=== PATIENT | female | born 1950 | race Caucasian/White ===

== ENCOUNTER → 2016-10-04 | Outpatient (CLI) | payer OTHER ==
[~2016-10-04] MED LIST: BUDE9TAB PO; CALC-787 PO; CANASA RC; CETI10CA PO; DOXY100C2 PO; FEXO-14 PO; HYDROCORTISONE ENEMA PR; LEVOTHYROXINE 75 MCG PO; MESA1.2T PO; MMT17NA NS; MONT10TA24 PO; MULT1TAB PO; POTA-51 PO; PRD20T PO; ROSU5TAB PO; RT-ALBUINH IH; SULF1TAB35 PO
--- OUTSIDE RECORDS SUMMARY | 2016-10-04 09:47 | XMS REPORT | Continuity of Care Document ---
Author Author [facility] Organization [facility] Address Unknown Phone Unavailable Care Team Providers Care Operations Support Coordinator Name Role Phone Guerita Pillai PCP [phone] Source Comments Some departments are not documenting in the electronic medical record. If you do not see the information that you expected, contact Release of Information in the Health Information Management department at [phone] for further assistance in locating additional records.[facility] Active Allergies and Adverse Reactions Allergen Noted Date Severity Reactions Comments [place] 08/10/2016 Low SNEEZING Dust 08/10/2016 Low RHINITIS Pollen 08/10/2016 Low SNEEZING Current Medications Prescription Sig. Disp. Refills Start End Date Status Date mesalamine (LIALDA) 1.2 Take 1.2 g by mouth Active gram tablet daily. Swallow whole; do not break, chew or crush. Administer with a meal. pantoprazole DR Take 40 mg by mouth Active (PROTONIX) 40 mg tablet daily. mesalamine(+) (CANASA) Insert or Apply 1,000 mg Active 1,000 mg supp to rectal area as directed twice daily. Levothyroxine 75 mcg cap Take by mouth. Active rosuvastatin (CRESTOR) 5 Take 5 mg by mouth daily. Active mg tablet mometasone (NASONEX) 50 Apply 2 Sprays to each Active mcg/actuation nasal spray nostril as directed daily. FEXOFENADINE HCL (CELINE Take by mouth. Active PO) ACETAMINOPHEN (TYLENOL Take by mouth. Active PO) cholecalciferol(+) Take 1 Cap by mouth every 4 Cap 2 08/28/20 Active (Vitamin D3) 50,000 units 7 days for 12 doses. 16 17 capsule budesonide (UCERIS) 9 mg Take 1 Tab by mouth daily 30 Tab 0 09/14/20 10/14/19 Active ER tablet for 30 days. 16 17 budesonide (UCERIS) 9 mg Take 9 mg by mouth daily. 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 Most Recent Encounters Date Type Specialty Providers Description 09/14/2016 Refill Gastroenterology Rebekah Turpin MD 09/05/2016 Orders Only Gastroenterology Rebekah Turpin MD 09/05/2016 Lab Only Gastroenterology Rebekah Turpin MD 09/04/2016 Telephone Infusion Rebekah Turpin MD Other - symptoms 08/27/2016 Telephone Gastroenterology Rebekah Turpin MD Results 08/23/2016 Telephone Gastroenterology Rebekah Turipn MD Other - Infusion 08/13/2016 Orders Only GastroenterRebekah Yanes MD Indeterminate colitis (Primary Dx) 08/10/2016 Hospital Rebekah Turpin MD Indeterminate colitis Encounter 08/10/2016 Office Visit Gastroenterology Rebekah Turpin MD Ulcerative proctitis with complication (HCC) (Primary Dx); Indeterminate colitis; Immunosuppressed status (HCC) Social History Tobacco Use Types Packs/Day Years Used Date Never Assessed Last Filed Vital Signs Vital Sign Reading Time Taken Blood Pressure 176/111 08/10/2016 9:52 AM CASHIER Pulse 72 08/10/2016 9:52 AM CASHIER Temperature 36.5 C (97.7 F) 08/10/2016 9:52 AM CASHIER Respiratory Rate 16 08/10/2016 9:52 AM CASHIER Height 1.702 m (5' 7") 08/10/2016 9:52 AM CASHIER Weight 90.357 kg (199 lb 3.2 oz) 08/10/2016 9:52 AM CASHIER Body Mass Index 31.19 08/10/2016 9:52 AM CASHIER Oxygen Saturation - - Plan of Care Health Maintenance Due Date Last Done Comments Hepatitis C Screening 1951 Physical (Comprehensive) 1958 Exam Pertussis Vaccine 1962 Tetanus Vaccine 1968 Cervical Cancer Screening 1972 Breast Cancer Screening 1991 Colorectal Cancer 2001 Screening Shingles Vaccine 2011 Influenza Vaccine 05/24/2016 Results from Last 3 Months TISSUE TRANSGLUTAMINASE AB IGA (08/10/2016 12:17 PM) Component Value Range Tissue Transglutaminase <1.2 Reference range: <4.0 (Negative) Unit: U/mL [facility] 25-OH VITAMIN D (D2 + D3) (08/10/2016 12:17 PM) Component Value Range Vitamin D(25-OH)Total 14.6 (L) 30-80 NG/ML Specimen Blood VITAMIN B12 (08/10/2016 12:17 PM) Component Value Range Vitamin B12 290 180-914 PG/ML Specimen Blood FOLATE, SERUM (08/10/2016 12:17 PM) Component Value Range Serum Folate 14.4Comment: NOTE NEW REFERENCE RANGES >3.9 NG/ML Specimen Blood FERRITIN (08/10/2016 12:17 PM) Component Value Range Ferritin 91 10-200 NG/ML Specimen Blood IRON + BINDING CAPACITY + %SAT (08/10/2016 12:17 PM) Component Value Range Iron 69 50-160 MCG/DL Iron Binding-TIBC 393 (H) 270-380 MCG/DL % Saturation 18 (L) 28-42 % Specimen Blood CELIAC DISEASE PANEL (08/10/2016 12:17 PM) Component Value Range Immunoglobulin A (IGA) 145Comment: Reference range: 61 to 356 Unit: mg/dL [facility] Interpretation, Celiac Negative serology. Celiac disease unlikely. However, approximately 10% of patients with celiac disease are seronegative. Also, patients who are already adhering to a gluten-free diet may be seronegative. If celiac disease is highly clinically suspected, consider HLA-DQ typing. [facility] Specimen Blood C REACTIVE PROT-HI SENSITIVITY (08/10/2016 12:17 PM) Component Value Range CRP, High Sensitivity 0.43Comment: MG/DL HSCRP CARDIAC RISK RANGES <0.06 LOWEST 0.06 - 0.09 LOW 0.10 - 0.16 MODERATE 0.17 - 0.32 HIGH >0.32 HIGHEST Specimen Blood SED RATE (08/10/2016 12:17 PM) Component Value Range Sed Rate -ESR 17 0-30 MM/HR Specimen Blood COMPREHENSIVE METABOLIC PANEL (08/10/2016 12:17 PM) Component Value Range Sodium 141 137-147 MMOL/L Potassium 3.8 3.5-5.1 MMOL/L Chloride 105 98-110 MMOL/L Glucose 95 70-100 MG/DL Blood Urea Nitrogen 14 7-25 MG/DL Creatinine 1.23 (H) 0.4-1.00 MG/DL Calcium 9.4 8.5-10.6 MG/DL Total Protein 7.0 6.0-8.0 G/DL Total Bilirubin 0.5 0.3-1.2 MG/DL Albumin 4.2 3.5-5.0 G/DL Alk Phosphatase 72 25-110 U/L AST (SGOT) 22 7-40 U/L CO2 29 21-30 MMOL/L ALT (SGPT) 42 7-56 U/L Anion Gap 7 3-12 eGFR Non 44 (L)Comment: >60 mL/min The eGFR is not validated for use in drug dosing adjustments. Continue to use estimated creatinine clearance per dosing reference text. Please contact the Clinical Pharmacist for questions. eGFR 53 (L)Comment: >60 mL/min The eGFR is not validated for use in drug dosing adjustments. Continue to use estimated creatinine clearance per dosing reference text. Please contact the Clinical Pharmacist for questions. Specimen Blood CBC AND DIFF (08/10/2016 12:17 PM) Component Value Range White Blood Cells 8.9 4.5-11.0 K/UL RBC 4.57 4.0-5.0 M/UL Hemoglobin 13.5 12.0-15.0 GM/DL Hematocrit 41.2 36-45 % MCV 90.1 80-100 FL MCH 29.6 26-34 PG MCHC 32.8 32.0-36.0 G/DL RDW 13.7 11-15 % Platelet Count 287 150-400 K/UL MPV 8.5 7-11 FL Neutrophils 70 41-77 % Lymphocytes 21 (L) 24-44 % Monocytes 6 4-12 % Eosinophils 2 0-5 % Basophils 1 0-2 % Absolute Neutrophil Count 6.30 1.8-7.0 K/UL Absolute Lymph Count 1.90 1.0-4.8 K/UL Absolute Monocyte Count 0.50 0-0.80 K/UL Absolute Eosinophil Count 0.10 0-0.45 K/UL Absolute Basophil Count 0.10 0-0.20 K/UL Specimen Blood
--- NOTE | 2016-10-04 18:29 | Diagnostic Imaging Report ---
Bilateral screening mammogram The current study was also evaluated with a Computer Aided Detection (CAD) system. Indication: Screening. No current complaints stated on the questionnaire. COMPARISON: 08/23/15. FINDINGS: The breasts are composed of scattered fibroglandular densities, slightly more dense in the lateral aspect of each breast. There is no developing mass, architectural distortion or suspicious cluster of calcifications. Allowing for technique and positional differences, no suspicious change is seen. IMPRESSION: No significant change. ACR BI-RADS Category 2: Benign findings. Result letter will be mailed to the patient. Note: At least 10% of breast cancer is not imaged by mammography. Dictated by: Dictated on workstation # [id number]
== END ==
LOC: RAD 09:44
PROVIDERS: ATTEND Family Medicine
DX: Z12.31 Encounter for screening mammogram for malignant neoplasm of breast (principal)

== ENCOUNTER → 2017-01-22 | Outpatient (CLI) | payer MEDICARE ==
--- NOTE | 2017-01-24 11:59 | ECHOCARDIOGRAPHY REPORT ---
DATE OF SERVICE: 01/22/2017 PROCEDURE: Two-dimensional echocardiogram. REFERRING PHYSICIAN: Guerita Pillai DO INDICATION: Peripheral edema. MEASUREMENT: LVID end diastolic 3.5, IVS thickness 0.8, LVPW thickness 0.8, left atrial diameter 3.1, ejection fraction 60%. FINDINGS: 1. Technical quality is good. 2. The left ventricle is normal in size with normal contractility, systolic function appeared to be normal, estimated ejection fraction is 60%, diastolic dysfunction is suggested by Doppler. 3. The left atrium is normal in size. No clot or thrombus were seen within the left atrium. 4. The right atrium and right ventricle are normal in size. No clot or thrombus were seen within the right side. 5. Mitral valve is normal in morphology with mild mitral regurgitation noted by color Doppler flow. No mitral valve prolapse. No mitral valve stenosis. Doppler across the mitral valve showed equalization of E and A, which is suggestive of diastolic dysfunction. 6. The aortic valve is trileaflet with normal opening and closing pattern. No significant aortic stenosis or regurgitation are seen, mild calcification of the aortic leaflets were noted. 8. Tricuspid valve is normal in morphology with mild tricuspid regurgitation noted by color Doppler flow. Doppler across tricuspid valve estimated pulmonary artery pressure of 9 plus right atrial pressure. 9. Pulmonic valve is functioning normally. 10. No pericardial effusion. CONCLUSION: 1. Normal left ventricular size and systolic function. Estimated ejection fraction is 60%. Diastolic dysfunction is suggested by Doppler. 2. Mild mitral and tricuspid regurgitation. 3. Estimated pulmonary artery pressure of 15 mmHg. Job ID: [id number] DocumentID: [id number] Dictated Date: 01/23/2017 17:15:28 Cabinet Professional Date: 01/24/2017 09:52:57 Dictated By: EFRAÍN JOHNSON MD
== END ==
LOC: CARD 13:13
PROVIDERS: ATTEND Nurse Practitioner
DX: R60.9 Edema, unspecified (principal); R53.83 Other fatigue
CPT/HCPCS: 36415; 83880; 93306

== ENCOUNTER → 2017-02-06 | Outpatient (CLI) | payer MEDICARE ==
--- NOTE | 2017-02-06 12:37 | Diagnostic Imaging Report ---
PROCEDURE: US Abdomen, limited. TECHNIQUE: Multiple realtime grayscale images were obtained over the abdomen in various projections. INDICATION: Ulcerative colitis. Evaluate mesenteric vessels. FINDINGS: The abdominal aorta is patent with a velocity of 53 cm/s. The SMA is not visualized. The celiac trunk is also not visualized. IMPRESSION: Limited study. The mesenteric vessels are obscured by bowel gas. Consider CT evaluation if needed. Dictated by: Dictated on workstation # [id number]
== END ==
LOC: RAD 08:50
PROVIDERS: ATTEND Nurse Practitioner
DX: K51.919 Ulcerative colitis, unspecified with unspecified complications (principal); R10.84 Generalized abdominal pain; R60.9 Edema, unspecified; R74.8 Abnormal levels of other serum enzymes
CPT/HCPCS: 76705

== ENCOUNTER → 2017-10-23 | Outpatient (CLI) | payer MEDICARE ==
--- NOTE | 2017-10-23 11:27 | Diagnostic Imaging Report ---
INDICATION: Routine screening. COMPARISON: 10/04/2016 and 08/23/2015. TECHNIQUE: Screening digital mammography was performed bilaterally with a Computer Aided Detection (CAD) system. FINDINGS: Both breasts are heterogeneously dense, limiting the sensitivity of mammography. The parenchymal pattern is stable. No dominant mass or malignant appearing microcalcifications are seen. The axillae are unremarkable. IMPRESSION: No mammographic features suspicious for malignancy are identified. ACR BI-RADS Category 1: Negative. Result letter will be mailed to the patient. Note: At least 10% of breast cancer is not imaged by mammography. Dictated by: Dictated on workstation # [id number]
== END ==
LOC: RAD 09:48
PROVIDERS: ATTEND Family Medicine
DX: Z12.31 Encounter for screening mammogram for malignant neoplasm of breast (principal)
CPT/HCPCS: 77067

== ENCOUNTER 2017-11-28 19:50 | Emergency (ER) | payer MEDICARE ==
[~2017-11-28] VITALS: Ht 170.2 cm; Wt 86.2 kg
--- OUTSIDE RECORDS SUMMARY | 2017-11-28 19:56 | XMS REPORT | Encounter Summary ---
Author Author [facility] Organization [facility] Address Unknown Phone Unavailable Care Team Providers Care Dentures Lab Technician Name Role Phone Guerita Pillai MD PCP Encounter Details Date Type Department Care Team Description 01/16/2018 [facility] [place] Reg Scruggs MD COLONOSCOPY Gastrointestinal [address] [facility] [address] [address] [place] [address] [place] [address] [phone] Social History Tobacco Use Types Packs/Day Years Used Date Former Smoker Quit: 01/30/1996 Smokeless Tobacco: Never Used Alcohol Use Drinks/Week oz/Week Comments Yes Sex Assigned at Date Recorded Not on file as of this encounter Functional Status Functional Status Response Date of Assessment Does the patient have a hearing impairment: No 10/04/2017 Does the patient have a visual impairment: Yes 10/04/2017 Does the patient have impaired ambulation: No 10/04/2017 Does the patient have an activity of daily living No 10/04/2017 (ADL) impairment: Does the patient have an instrumental activity of No 10/04/2017 daily living (IADL) impairment: Cognitive Status Response Date of Assessment Does the patient have a cognitive impairment: No 10/04/2017 as of this encounter Plan of Treatment Date Type Specialty Care Team Description 01/16/2018 Surgery Gastroenterology Reg Scruggs MD COLONOSCOPY [address] [place] [address] [phone] 01/16/2018 Procedure Pass Gastroenterology 01/16/2018 [facility] Reg Scruggs MD Colitis Encounter [address] [place] [address] [phone] as of this encounter Visit Diagnoses Diagnosis Colitis Other and unspecified noninfectious gastroenteritis and colitis Admitting Diagnoses Diagnosis Colitis - Colitis [K52.9] Other and unspecified noninfectious gastroenteritis and colitis
--- OUTSIDE RECORDS SUMMARY | 2017-11-28 19:56 | XMS REPORT | Encounter Summary ---
Author Author [facility] Organization [facility] Address Unknown Phone Unavailable Care Team Providers Care Media Relations Intern Name Role Phone PCP Unavailable Encounter Details Date Type Department Care Team Description 01/16/2018 Procedure Pass [place] [facility] [address] [place] [address] Social History Tobacco Use Types Packs/Day Years [...] Surgery Gastroenterology Reg Scruggs MD COLONOSCOPY [address] [place] [address] [phone] 01/16/2018 Procedure Pass Gastroenterology 01/16/2018 [facility] Reg Scruggs MD Colitis Encounter [address] [place] [address] [phone] as of this encounter Visit Diagnoses Not on filein this encounter
--- OUTSIDE RECORDS SUMMARY | 2017-11-28 19:56 | XMS REPORT | Continuity of Care Document ---
Author Author [facility] Organization [facility] Address Unknown Phone Unavailable Care Team Providers Care Tire Trucker Name Role Phone [facility] Unavailable Unavailable Problems Medications Allergies, Adverse Reactions, Alerts Immunizations Results Vital Signs Encounters Location Location Details Encounter Type Encounter Number Reason For Visit Attending Provider ADM Date DC Date Status Source OUTPATIENT [id number] JAVIER DASILVA 05/08/20172016 Active [facility] OUTPATIENT [id number] CAMMIE BOLANOS 06/04/2017 06/04/2017 Active [facility] OP SURGERY [id number] 07/01/2017 07/01/2017 Active [facility] OP SURGERY [id number] 07/15/2017 07/15/2017 Active [facility] OP SURGERY [id number] 08/12/2017 08/12/2017 Active [facility] OUTPATIENT [id number] MANN KEITH 08/30/20172016 Active [facility] OUTPATIENT [id number] MANN KEITH 08/30/2017 Active [facility] OP SURGERY [id number] 10/04/2017 10/04/2017 Active [facility] OP SURGERY [id number] 11/27/2017 11/27/2017 Active [facility] O 11/28/2017 Active [facility] OUTPATIENT [id number] JAVIER DASILVA 11/28/2017 Active [facility] Procedures Plan of Care Social History Assessment and Plan Family History Advance Directives Functional Status
--- OUTSIDE RECORDS SUMMARY | 2017-11-28 19:56 | XMS REPORT | Clinical Summary ---
Author Author [facility] Organization [facility] Address Unknown Phone Unavailable Care Team Providers Care High School Mathematics Teacher Name Role Phone Guerita Pillai MD PCP Source Comments Some departments are not documenting in the electronic medical record. If you do not see the information that you expected, contact Release of Information in the Health Information Management department at [phone] for further assistance in locating additional records.[facility] Allergies Active Allergy Reactions Severity Noted Date Comments Animal Dander SNEEZING Low 02/12/2017 [place] SNEEZING Low 08/10/2016 Dust RHINITIS Low 08/10/2016 Pollen SNEEZING Low 08/10/2016 Current Medications Prescription Sig. Disp. Refills Start End Date Status Date Levothyroxine 75 mcg cap Take 50 mcg by mouth Active daily. rosuvastatin (CRESTOR) 5 Take 5 mg by mouth every Active mg tablet 48 hours. mometasone (NASONEX) 50 Apply 2 Sprays to each Active mcg/actuation nasal spray nostril as directed daily. FEXOFENADINE HCL (CELINE Take by mouth. Active PO) ACETAMINOPHEN (TYLENOL Take by mouth. Active PO) prednisone (DELTASONE) 5 Take 35 mg PO for 7 days, 168 Tab 0 11/08/19 Active mg tablet 30 mg PO for 7 days, 25 17 mg PO for 7 days, 20 mg PO for 7 days, then 10 mg PO for 7 days then stop L.ACID/L.CASEI/B.BIF/B.LO Take by mouth daily. Active N/FOS (PROBIOTIC BLEND PO) ERGOCALCIFEROL (VITAMIN Take 5,000 Units by mouth Active D2) (VITAMIN D PO) daily. levothyroxine (SYNTHROID) TK 1 T PO QD 0 05/07/20 Active 50 mcg tablet 17 azelastine(+) (ASTELIN) INSTILL 2 SPRAYS INTO 2 07/13/20 Active 137 mcg (0.1 %) nasal EACH NOSTRIL BID 17 spray azaTHIOprine (IMURAN) 50 Take 2.5 tablets by mouth 98 tablet 5 Active mg tablet daily. Dose change on 08-22-2017 diclofenac(+) (VOLTAREN) Apply 2g to hands 3-4 300 g 3 08/30/20 Active 1 % topical gel times daily [address] Take 1 tablet by mouth 90 tablet 0 09/24/19 Active (PROTONIX) 40 mg tablet daily 30 minutes before 18 breakfast. CHOLECALCIFEROL (VITAMIN Take by mouth. Active D3) (VITAMIN D3 PO) electrolyte GUT PEG Mix as directed on 4000 mL 0 11/27/19 Active (NULYTELY, COLYTE, package. Drink 240ml 18 GAVILYTE-N) 420 gram oral (8oz) every 10 minutes solution until gone. Refrigerate once mixed. Active Problems Problem Noted Date Colitis 11/27/2017 Overview: Added automatically from request for surgery [id number] Gastroesophageal reflux disease without esophagitis 06/04/2017 ALEXSANDRA (acute kidney injury) (HCC) 02/20/2017 Immunosuppressed status (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 Encounters Date Type Specialty Care Team Description 11/28/2017 Hospital Lab Mag Lira MBBS Chronic kidney disease, Encounter stage 3 (moderate) 11/27/2017 Office Visit Nephrology Mag Lira MBBS CKD (chronic kidney disease) stage 3, GFR 30-59 ml/min (Primary Dx) 11/27/2017 Infusion Infusion Reg Scruggs MD Indeterminate colitis (Primary Dx) 11/26/2017 Office Visit Gastroenterology Kurt Rouse MD 11/26/2017 Prep for Case Gastroenterology Reg Scruggs MD Colitis ( Primary Dx) 11/25/2017 Orders Only Infusion Je Natarajan RPH 10/09/2017 Orders Only Gastroenterology Reg Scruggs MD 10/04/2017 Infusion Infusion Kurt Rouse MD Indeterminate colitis (Primary Dx) 09/24/2017 Refill Gastroenterology Lani Godinez ARNP 09/18/2017 Orders Only Allergy,Immunology and Al Mancini MD Rheumatology 09/13/2017 Telephone Allergy,Immunology and Al Mancini MD Follow- up Phone Call Rheumatology 09/09/2017 Orders Only Gastroenterology Reg Scruggs MD Medication monitoring encounter 09/03/2017 Telephone Allergy,Immunology and Al Mancini MD Prior Authorization Rheumatology (Voltaren Gel) 08/30/2017 Hospital Lab Al Mancini MD Pain in unspecified joint Encounter 08/30/2017 Hospital Radiology Al Mancini MD Encounter 08/30/2017 Office Visit Allergy,Immunology and Al Mancini MD Polyarthralgia (Primary Rheumatology Dx); MOON positive; IBD (inflammatory bowel disease); Inflammatory arthropathy; Osteoarthritis, unspecified osteoarthritis type, unspecified site; Trigger little finger of right hand from Last 3 Months Immunizations Name Dates Previously Given Next Due HEP A/HEP B Combined 06/04/2017 Vaccine Pneumococcal 04/02/2017 Vaccine([facility]/immunocompromised adult) Family History Medical History Relation Name Comments Irritable Bowel Disease Brother Cancer Father Arthritis Mother Heart Disease Mother Heart Failure Mother Thyroid Disease Other siblings Arthritis Paternal Grandfather Hypertension Paternal Grandfather Autoimmune Disease Neg Hx Cancer-Colon Neg Hx Inflammatory Bowel Neg Hx Disease Ulcerative Colitis Neg Hx Relation Name Status Comments Brother Father Mother Other siblings Alive Paternal Grandfather Social History Tobacco Use Types Packs/Day Years Used Date Former Smoker Quit: 01/30/1996 Smokeless Tobacco: Never Used Alcohol Use Drinks/Week oz/Week Comments Yes Sex Assigned at Date Recorded Not on file Last Filed Vital Signs Vital Sign Reading Time Taken Blood Pressure 167/84 11/27/2017 3:50 PM SOUND ASSISTANT Pulse 102 11/27/2017 3:50 PM SOUND ASSISTANT Temperature 36.4 C (97.6 F) 11/27/2017 8:51 AM SOUND ASSISTANT Respiratory Rate 18 11/26/2017 3:16 PM SOUND ASSISTANT Oxygen Saturation 99% 11/27/2017 8:51 AM SOUND ASSISTANT Inhaled Oxygen - - Concentration Weight 86.6 kg (191 lb) 11/27/2017 3:48 PM SOUND ASSISTANT Height 173.7 cm (5' 8.39") 11/27/2017 3:48 PM SOUND ASSISTANT Body Mass Index 28.71 11/27/2017 3:48 PM SOUND ASSISTANT Plan of Treatment Date Type Specialty Care Team Description 01/16/2018 Surgery Gastroenterology Reg Scruggs MD COLONOSCOPY [address] [place] [address] [phone] 01/16/2018 Procedure Pass Gastroenterology 01/16/2018 Hospital Reg Scruggs MD Colitis Encounter [address] [place] [address] [phone] Health Maintenance Due Date Last Done Comments HEPATITIS C SCREENING 1951 PHYSICAL (COMPREHENSIVE) 1958 EXAM PERTUSSIS VACCINE 1962 TETANUS VACCINE 1968 BREAST CANCER SCREENING 1991 COLORECTAL CANCER 2001 SCREENING SHINGLES VACCINE 2011 OSTEOPOROSIS SCREENING 2016 PREVNAR/PNEUMOVAX (#2) 04/02/2018 04/02/2017 INFLUENZA VACCINE 06/23/2018 Procedures Procedure Name Priority Date/Time Associated Diagnosis Comments ARTHROCENTESIS-CLINIC Routine 08/31/2017 Polyarthralgia Results for this 11:29 AM SOUND ASSISTANT MOON positive procedure are in the IBD (inflammatory bowel results section. disease) Inflammatory arthropathy Osteoarthritis, unspecified osteoarthritis type, unspecified site Trigger little finger of right hand from Last 3 Months Results * MICROALB/CR RATIO-URINE RANDOM (11/27/2017 3:40 PM) Component Value Ref Range Microalbumin, Random 49.3 (H) <19 MCG/ML Creatinine, Random 158 MG/DL Microalbumin/CR ratio 31.20 (H)Comment: NOTE NEW REFERENCE RANGES <30 ug/ mg Urine Specimen Performing Laboratory Urine [facility] [address] [place] [address] * CBC AND DIFF (11/27/2017 9:38 AM) Only the most recent of 3 results within the time period is included. Component Value Ref Range White Blood Cells 4.9 4.5 - 11.0 K/UL RBC 3.86 (L) 4.0 - 5.0 M/UL Hemoglobin 12.5 12.0 - 15.0 GM/DL Hematocrit 36.4 36 - 45 % MCV 94.1 80 - 100 FL MCH 32.3 26 - 34 PG MCHC 34.3 32.0 - 36.0 G/DL RDW 13.5 11 - 15 % Platelet Count 215 150 - 400 K/UL MPV 8.0 7 - 11 FL Neutrophils 57 41 - 77 % Lymphocytes 25 24 - 44 % Monocytes 9 4 - 12 % Eosinophils 8 (H) 0 - 5 % Basophils 1 0 - 2 % Absolute Neutrophil Count 2.80 1.8 - 7.0 K/UL Absolute Lymph Count 1.20 1.0 - 4.8 K/UL Absolute Monocyte Count 0.40 0 - 0.80 K/UL Absolute Eosinophil Count 0.40 0 - 0.45 K/UL Absolute Basophil Count 0.10 0 - 0.20 K/UL Specimen Performing Laboratory [facility] [address] [place] [id number] * COMPREHENSIVE METABOLIC PANEL (11/27/2017 9:38 AM) Only the most recent of 2 results within the time period is included. Component Value Ref Range Sodium 142 137 - 147 MMOL/L Potassium 3.9 3.5 - 5.1 MMOL/L Chloride 106 98 - 110 MMOL/L Glucose 84 70 - 100 MG/DL Blood Urea Nitrogen 18 7 - 25 MG/DL Creatinine 1.12 (H) 0.4 - 1.00 MG/DL Calcium 9.3 8.5 - 10.6 MG/DL Total Protein 6.5 6.0 - 8.0 G/DL Total Bilirubin 0.4 0.3 - 1.2 MG/DL Albumin 4.1 3.5 - 5.0 G/DL Alk Phosphatase 64 25 - 110 U/L AST (SGOT) 27 7 - 40 U/L CO2 30 21 - 30 MMOL/L ALT (SGPT) 22 7 - 56 U/L Anion Gap 6 3 - 12 eGFR Non 49 (L) >60 mL/min Comment: The eGFR is not validated for use in drug dosing adjustments. Continue to use estimated creatinine clearance per dosing reference text. Please contact the Clinical Pharmacist for questions. eGFR 59 (L) >60 mL/min Comment: The eGFR is not validated for use in drug dosing adjustments. Continue to use estimated creatinine clearance per dosing reference text. Please contact the Clinical Pharmacist for questions. Specimen Performing Laboratory Blood [facility] [address] [place] [address] * [facility] REFERENCE TEST (10/04/2017 3:15 PM) Component Value Ref Range Test PROMETHEUS Anser VDZ Reference Lab PROMETHEUS Results Ref Lab SHIPPED VIA [employer] PRIORITY OVERNIGHT ON 10/04/2017. RESULTS WILL BE SENT DIRECTLY TO THE ORDERING PHYSICIAN. Specimen Mail SERUM 2 GOLD TUBES Specimen Performing Laboratory REFERENCE LAB * MISCELLANEOUS LAB TEST (10/04/2017) Specimen Performing Laboratory Blood OTHER OUTSIDE LAB * ARTHROCENTESIS-CLINIC (08/31/2017 11:29 AM) Specimen Performing Laboratory IN CLINIC Narrative Al Mancini MD 08/31/2017 11:29 AM Written informed consent was obtained and scanned into the chart. The site was marked and sterilized. Location: right 5th finger flexor tenosynovitis - trigger finger injection Injection: DepoMedrol 16mg plus Lidocaine 3mg. Procedure done by: Al Mancini MD Written post-injection instructions were given. No complications * MPO/DC-3 (08/30/2017 1:50 PM) Component Value Ref Range Myeloperoxidase AB <0.2 Reference range: <0.4 (Negative) Unit: U [facility] Serine Protease3 AB <0.2 Reference range: <0.4 (Negative) Unit: U [facility] Specimen Performing Laboratory Blood REFERENCE LAB * SED RATE (08/30/2017 1:50 PM) Component Value Ref Range Sed Rate -ESR 3 0 - 30 MM/HR Specimen Performing Laboratory Blood [facility] [address] [place] [address] * C REACTIVE PROTEIN (CRP) (08/30/2017 1:50 PM) Component Value Ref Range C-Reactive Protein 0.20 <1.0 MG/DL Specimen Performing Laboratory Blood [facility] [address] [place] [address] * HAND MIN 3 VIEWS BILATERAL (08/30/2017 12:41 PM) Specimen Performing Laboratory Bilateral [facility] RESULTS Impressions Findings/impression: Right hand: 1. There is normal alignment of the osseous structures. No fracture or acute osseous abnormality 2. Mild spurring of the IP joint of thumb, minimal spurring of DIP joint 2, 3, 5. Mild spurring of MCP 1. This is consistent with osteoarthritis. 3. No erosions identified. No soft tissue calcifications. Left hand: 1. There is normal alignment of the osseous structures. No fracture or acute abnormality. 2. Mild narrowing of DIP joints 2-5. Minimal spurring of the IP joint of thumb, mild spurring of DIP joint 2, minimal spurring of DIP joints 3 and 5. This is consistent with osteoarthritis. 3. No erosions. 4. Tiny periarticular calcification adjacent to DIP 2. Tiny gunnar like calcification adjacent to the ulnar styloid which may reflect a small ossicle or old avulsion. Finalized by Abhishek Green M.D. on 08/30/2017 2:04 PM. Dictated by Abhishek Green M.D. on 08/30/2017 1:49 PM. Narrative Bilateral hand 3 view INDICATION: 66-year-old female, polyarthralgia, MOON positive, inflammatory arthropathy, , IBD, trigger little finger of right hand, right fifth finger stiff COMPARISON: None Procedure Note Interface, Radiant Results - 08/30/2017 2:07 PM SOUND ASSISTANT Bilateral hand 3 view INDICATION: 66-year-old female, polyarthralgia, MOON positive, inflammatory arthropathy, , IBD, trigger little finger of right hand, right fifth finger stiff COMPARISON: None IMPRESSION Findings/impression: Right hand: 1. There is normal alignment of the osseous structures. No fracture or acute osseous abnormality 2. Mild spurring of the IP joint of thumb, minimal spurring of DIP joint 2, 3, 5. Mild spurring of MCP 1. This is consistent with osteoarthritis. 3. No erosions identified. No soft tissue calcifications. Left hand: 1. There is normal alignment of the osseous structures. No fracture or acute abnormality. 2. Mild narrowing of DIP joints 2-5. Minimal spurring of the IP joint of thumb , mild spurring of DIP joint 2, minimal spurring of DIP joints 3 and 5. This is consistent with osteoarthritis. 3. No erosions. 4. Tiny periarticular calcification adjacent to DIP 2. Tiny gunnar like calcification adjacent to the ulnar styloid which may reflect a small ossicle or old avulsion. Finalized by Abhishek Green M.D. on 08/30/2017 2:04 PM. Dictated by Abhishek Green M.D. on 08/30/2017 1:49 PM. from Last 3 Months
--- OUTSIDE RECORDS SUMMARY | 2017-11-28 19:56 | XMS REPORT | Encounter Summary ---
Author Author [facility] Organization [facility] Address Unknown Phone Unavailable Care Team Providers Care Hospital Personnel Director Name Role Phone PCP Unavailable Encounter Details Date Type Department Care Team Description 01/16/2018 [facility] Reg Scruggs MD Colitis Encounter Endoscopy [address] [place] [address] [place] [address] [phone] Social History Tobacco Use Types Packs/Day Years [...] Surgery Gastroenterology Reg Scruggs MD COLONOSCOPY [address] [place] [address] [phone] 01/16/2018 Procedure Pass Gastroenterology 01/16/2018 [facility] Reg Scruggs MD Colitis Encounter [address] [place] [address] [phone] as of this encounter Visit Diagnoses Diagnosis Colitis Other and unspecified noninfectious gastroenteritis and colitis Admitting Diagnoses Diagnosis Colitis - Colitis [K52.9] Other and unspecified noninfectious gastroenteritis and colitis
--- OUTSIDE RECORDS SUMMARY | 2017-11-28 19:57 | XMS REPORT | Encounter Summary ---
Author Author [facility] Organization [facility] Address Unknown Phone Unavailable Care Team Providers Care Mail Distribution Scheme Examiner Name Role Phone Guerita Pillai MD PCP Reason for Visit * Reason Comments Chronic Kidney Disease Stage III Encounter Details Date Type Department Care Team Description 11/27/2017 Office Visit [facility] Mag Lira MBBS CKD (chronic kidney Physicians - Internal [address] disease) stage 3, GFR Medicine [address] 30-59 ml/min (Primary Dx) [address] [place] [address] [place] [phone] [address] [phone] Social History Tobacco Use Types Packs/Day Years Used Date Former Smoker Quit: 01/30/1996 Smokeless Tobacco: Never Used Alcohol Use Drinks/Week oz/Week Comments Yes Sex Assigned at Date Recorded Not on file as of this encounter Last Filed Vital Signs Vital Sign Reading Time Taken Blood Pressure 167/84 11/27/2017 3:50 PM PORTRAIT PHOTOGRAPHER Pulse 102 11/27/2017 3:50 PM PORTRAIT PHOTOGRAPHER Temperature - - Respiratory Rate - - Oxygen Saturation - - Inhaled Oxygen - - Concentration Weight 86.6 kg (191 lb) 11/27/2017 3:48 PM PORTRAIT PHOTOGRAPHER Height 173.7 cm (5' 8.39") 11/27/2017 3:48 PM PORTRAIT PHOTOGRAPHER Body Mass Index 28.71 11/27/2017 3:48 PM PORTRAIT PHOTOGRAPHER in this encounter Functional Status Functional Status Response [...] Surgery Gastroenterology Reg Scruggs MD COLONOSCOPY [address] [place] [address] 01/16/2018 Procedure Pass Gastroenterology 01/16/2018 [facility] Reg Scruggs MD Colitis Encounter [address] [facility] [address] [place] [address] as of this encounter Results * MICROALB/CR RATIO-URINE RANDOM (11/27/2017 3:40 PM) Component Value Ref Range Microalbumin, Random 49.3 (H) <19 MCG/ML Creatinine, Random 158 MG/DL Microalbumin/CR ratio 31.20 (H)Comment: NOTE NEW REFERENCE RANGES <30 ug/ mg Urine Specimen Performing Laboratory Urine [facility] [address] [place] [address] in this encounter Visit Diagnoses Diagnosis CKD (chronic kidney disease) stage 3, GFR 30-59 ml/min - Primary Chronic kidney disease, Stage III (moderate)
--- OUTSIDE RECORDS SUMMARY | 2017-11-28 19:57 | XMS REPORT | Encounter Summary ---
Author Author [facility] Organization [facility] Address Unknown Phone Unavailable Care Team Providers Care Three Dimensional Art Instructor Name Role Phone Guerita Pillai MD PCP Reason for Visit * Treatment (Routine) Status Reason Specialty Diagnoses / Referred By Referred To Procedures Contact Contact Authorized Diagnoses Kurt Rouse, 46 Infusion Ther Indeterminate Cl colitis [address] [place] [address] (ENTYVIO) - LOAD [id number] Phone: + MAINTENANCE [phone] Encounter Details Date Type Department Care Team Description 11/27/2017 Infusion [facility] - Reg Scruggs MD Indeterminate colitis [facility] [address] (Primary Dx) [address] [place] [address] [place], [place] [id number] Social History Tobacco Use Types Packs/Day Years Used Date Former Smoker Quit: 01/30/1996 Smokeless Tobacco: Never Used Alcohol Use Drinks/Week oz/Week Comments Yes Sex Assigned at Date Recorded Not on file as of this encounter Last Filed Vital Signs Vital Sign Reading Time Taken Blood Pressure 157/77 11/27/2017 8:51 AM AGRICULTURAL RESEARCH TECHNICIAN Pulse 72 11/27/2017 8:51 AM AGRICULTURAL RESEARCH TECHNICIAN Temperature 36.4 C (97.6 F) 11/27/2017 8:51 AM AGRICULTURAL RESEARCH TECHNICIAN Respiratory Rate - - Oxygen Saturation 99% 11/27/2017 8:51 AM AGRICULTURAL RESEARCH TECHNICIAN Inhaled Oxygen - - Concentration Weight 87.1 kg (192 lb) 11/27/2017 8:51 AM AGRICULTURAL RESEARCH TECHNICIAN Height 172.7 cm (5' 8") 11/27/2017 8:51 AM AGRICULTURAL RESEARCH TECHNICIAN Body Mass Index 29.19 11/27/2017 8:51 AM AGRICULTURAL RESEARCH TECHNICIAN in this encounter Functional Status Functional Status [...] impairment: No 10/04/2017 as of this encounter Progress Notes * Roberta Emanuel, RN - 11/27/2017 9:00 AM AGRICULTURAL RESEARCH TECHNICIAN pt here for every other month infusion of entyvio; tolerated well; no complaints in this encounter Plan of Treatment Date Type Specialty Care Team Description 01/16/2018 Surgery Gastroenterology Reg Scruggs MD COLONOSCOPY [address] [place], [place] [id number] 01/16/2018 Procedure Pass Gastroenterology 01/16/2018 [facility] Reg Scruggs MD Colitis Encounter [address] [place], [place] [phone] as of this encounter Results * CBC AND DIFF (11/27/2017 9:38 AM) Component Value Ref Range White Blood Cells [...] 0 - 0.20 K/UL Specimen Performing Laboratory [facility] [address] [place] [id number] * COMPREHENSIVE METABOLIC PANEL (11/27/2017 9:38 AM) Component Value Ref Range Sodium 142 137 [...] Performing Laboratory Blood [facility] [address] [place] [address] in this encounter Visit Diagnoses Diagnosis Indeterminate colitis - Primary Other and unspecified noninfectious gastroenteritis and colitis Administered Medications Medication Order MAR Action Action Date Dose Rate Site acetaminophen (TYLENOL) tablet 500 mg Given 11/27/2017 500 mg 500 mg, Oral, ONCE, 1 dose, Sat11/27/17 09:14 AGRICULTURAL RESEARCH TECHNICIAN at 0915, Maintenance Course: TOTAL ACETAMINOPHEN DOSE NOT TO EXCEED 4GM DAILY diphenhydrAMINE (BENADRYL) injection 25 Given 11/27/2017 25 mg mg 09:14 AGRICULTURAL RESEARCH TECHNICIAN 25 mg, Intravenous, ONCE, 1 dose, 11/27/17 at 0915, Maintenance Course methylPREDNISolone (SOLU-MEDROL PF) Given 11/27/2017 40 mg injection 40 mg 09:16 AGRICULTURAL RESEARCH TECHNICIAN 40 mg, Intravenous, ONCE, 1 dose, 11/27/17 at 0915 vedolizumab (ENTYVIO) 300 mg in sodium Given - New 11/27/2017 300 mg 500 mL/hr chloride 0.9% (NS) 250 mL IVPB Bag 10:01 AGRICULTURAL RESEARCH TECHNICIAN 300 mg, Intravenous, 250 mL, Administer over 30 Minutes, ONCE, 1 dose, 11/27/17 at 0945, Maintenance Course: Following infusion, flush with 30 mL of sterile 0.9% sodium chloride injection. in this encounter
--- OUTSIDE RECORDS SUMMARY | 2017-11-28 19:57 | XMS REPORT | Encounter Summary ---
Author Author [facility] Organization [facility] Address Unknown Phone Unavailable Care Team Providers Care Demurrage Clerk Name Role Phone Guerita Pillai MD PCP Encounter Details Date Type Department Care Team Description 11/26/2017 Prep for Case [facility] Reg Scruggs MD Colitis (Primary Dx) Physicians - Internal [address] [facility] Medicine [address] [place] [address] [address] [facility] [phone] [place] [address] Social History Tobacco Use Types Packs/Day Years [...] Surgery Gastroenterology Reg Scruggs MD COLONOSCOPY [address] [facility] [address] [place], [place] [id number] 01/16/2018 Procedure Pass Gastroenterology 01/16/2018 Reg Bentley MD Colitis Encounter [address] [facility] [address] [place] [address] as of this encounter Visit Diagnoses Diagnosis Colitis - Primary Other and unspecified noninfectious gastroenteritis and colitis
--- OUTSIDE RECORDS SUMMARY | 2017-11-28 19:57 | XMS REPORT | Encounter Summary ---
Author Author [facility] Organization [facility] Address Unknown Phone Unavailable Care Team Providers Care Oven Unloader Name Role Phone Guerita Pillai MD PCP Encounter Details Date Type Department Care Team Description 10/09/2017 Orders Only [facility] Reg Scruggs MD Physicians - Internal [address] [facility] Medicine [address] [address] [address] [facility] [phone] [place] [address] Social History Tobacco Use Types [...] Surgery Gastroenterology Reg Scruggs MD COLONOSCOPY [address] [facility] [address] [place], [place] [id number] 01/16/2018 Procedure Pass Gastroenterology 01/16/2018 [facility] Reg Scruggs MD Colitis Encounter [address] [place] [address] as of this encounter Results * MISCELLANEOUS LAB TEST (10/04/2017) Specimen Performing Laboratory Blood OTHER OUTSIDE LAB in this encounter Visit Diagnoses Not on filein this encounter
--- OUTSIDE RECORDS SUMMARY | 2017-11-28 19:57 | XMS REPORT | Encounter Summary ---
Author Author [facility] Organization [facility] Address Unknown Phone Unavailable Care Team Providers Care Press Clipper Name Role Phone Guerita Pillai MD PCP Reason for Visit * Reason Comments Follow-up Phone Call Encounter Details Date Type Department Care Team Description 09/13/2017 Telephone [facility] Al Mancini MD Follow-up Phone Call Physicians - Internal [address] [facility] Medicine [address] [place] [address] [address] [facility] [phone] [place] [address] Social History Tobacco Use Types Packs/Day Years Used Date Former Smoker Quit: 01/30/1996 Smokeless Tobacco: Never Used Alcohol Use Drinks/Week oz/Week Comments Yes Sex Assigned at Date Recorded Not on file as of this encounter Functional Status Functional Status Response Date of Assessment Does the patient have a hearing impairment: No 11/23/2016 Does the patient have a visual impairment: Yes 11/23/2016 Does the patient have impaired ambulation: No 11/23/2016 Does the patient have an activity of daily living No 11/23/2016 (ADL) impairment: Does the patient have an instrumental activity of No 11/23/2016 daily living (IADL) impairment: Cognitive Status Response Date of Assessment Does the patient have a cognitive impairment: No 11/23/2016 as of this encounter Miscellaneous Notes * Telephone Encounter - Ronda Bailey RN - 09/13/2017 8:34 AM WOODWORKING MACHINIST Please see patient's [employer] message below to follow-up on injection and Voltaren gel. Routing to Dr. Mancini as ANJALI. ----- Message ----- From: Hannah Hernandez Sent: 09/12/2017 4:20 PM To: Allergy & Rheum Im Nurse Tawanna Subject: Visit Follow-Up Question Sorry im Late with this, but my finger is doing well. My hands continue to hurt and get real stiff at night, but the cream is helping. in this encounter Plan of Treatment Date Type Specialty Care Team Description 01/16/2018 Surgery Gastroenterology Reg Scruggs MD COLONOSCOPY [address] [facility] [address] [place] [address] 01/16/2018 Procedure Pass Gastroenterology 01/16/2018 [facility] Reg Scruggs MD Colitis Encounter [address] [place] [address] as of this encounter Visit Diagnoses Not on filein this encounter
--- OUTSIDE RECORDS SUMMARY | 2017-11-28 19:57 | XMS REPORT | Encounter Summary ---
Author Author [facility] Organization [facility] Address Unknown Phone Unavailable Care Team Providers Care Toy Painter Name Role Phone Guerita Pillai MD PCP Encounter Details Date Type Department Care Team Description 11/25/2017 Orders Only [facility] Je Natarajan, [facility] [address] [place] [address] Social History Tobacco Use Types Packs/Day Years [...] Surgery Gastroenterology Reg Scruggs MD COLONOSCOPY [address] [place], [place] [id number] 01/16/2018 Procedure Pass Gastroenterology 01/16/2018 [facility] Reg Scruggs MD Colitis Encounter [address] [place], [place] [id number] as of this encounter Visit Diagnoses Not on filein this encounter
--- OUTSIDE RECORDS SUMMARY | 2017-11-28 19:57 | XMS REPORT | Encounter Summary ---
Author Author [facility] Organization [facility] Address Unknown Phone Unavailable Care Team Providers Care Superintendent Of Schools Name Role Phone Guerita Pillai MD PCP Encounter Details Date Type Department Care Team Description 09/09/2017 Orders Only [facility] Reg Scruggs MD Medication monitoring Physicians - Internal [address] [employer] encounter Medicine [address] [place] [address] [address] [facility] MED [phone] [place] [address] Social History Tobacco Use Types [...] impairment: No 11/23/2016 as of this encounter Plan of Treatment Date Type Specialty Care Team Description 01/16/2018 Surgery Gastroenterology Reg Scruggs MD COLONOSCOPY [address] [place] [address] [phone] 01/16/2018 Procedure Pass Gastroenterology 01/16/2018 [facility] Reg Scruggs MD Colitis Encounter [address] [place] [address] [phone] as of this encounter Results * CBC AND DIFF (09/06/2017) Component Value Ref Range White Blood Cells 5.95 RBC 4.10 Hemoglobin 13.3 Hematocrit 39.0 MCV 95.1 MCH 32.4 HIGH MCHC 34.1 Platelet Count 262 MPV RDW 13.7 Neutrophils 51.3 Absolute Neutrophil Count 3.05 Lymphocytes 31.1 Absolute Lymph Count 1.85 Monocytes 8.4 Absolute Monocyte Count 0.5 Eosinophil 7.9 HIGH Absolute Eosinophil Count 0.5 Basophils 1.3 Absolute Basophil Count 0.1 Atypical Lym Metamyelocyte Myelocyte Promyelocyte Blast RBC Morph WBC Morphology Specimen Performing Laboratory Blood OTHER OUTSIDE LAB in this encounter Visit Diagnoses Diagnosis Medication monitoring encounter Encounter for therapeutic drug monitoring
--- OUTSIDE RECORDS SUMMARY | 2017-11-28 19:57 | XMS REPORT | Encounter Summary ---
Author Author [facility] Organization [facility] Address Unknown Phone Unavailable Care Team Providers Care Pet House Sitter Name Role Phone Guerita Pillai MD PCP Encounter Details Date Type Department Care Team Description 11/26/2017 Office Visit [facility] Kurt Rouse MD Physicians - Internal [address] [facility] [place] [address] [address] [phone] [address] [facility] [place] [address] Social History Tobacco Use Types Packs/Day Years Used Date Former Smoker Quit: 01/30/1996 Smokeless Tobacco: Never Used Alcohol Use Drinks/Week oz/Week Comments Yes Sex Assigned at Date Recorded Not on file as of this encounter Last Filed Vital Signs Vital Sign Reading Time Taken Blood Pressure 135/82 11/26/2017 3:16 PM AIRPLANE GASTANK LINER ASSEMBLER Pulse 74 11/26/2017 3:16 PM AIRPLANE GASTANK LINER ASSEMBLER Temperature - - Respiratory Rate 18 11/26/2017 3:[address] AIRPLANE GASTANK LINER ASSEMBLER Oxygen Saturation - - Inhaled Oxygen - - Concentration Weight 87.5 kg (193 lb) 11/26/2017 3:[address] AIRPLANE GASTANK LINER ASSEMBLER Height 172.7 cm (5' 8") 11/26/2017 3:[address] AIRPLANE GASTANK LINER ASSEMBLER Body Mass Index 29.35 11/26/2017 3:[address] AIRPLANE GASTANK LINER ASSEMBLER in this encounter Functional Status Functional Status [...] impairment: No 10/04/2017 as of this encounter Instructions * Patient Instructions - Verito Lara RN - 11/26/2017 3:[address] AIRPLANE GASTANK LINER ASSEMBLER 1) You will be contacted to schedule Colonoscopy 2) Continue medication monitoring labs with medications 3) Will contact insurance re: billing concerns and then will continue Hepatitis Vaccination Please call for any questions. PAMELA Sellers [phone]. in this encounter Plan of Treatment Date Type Specialty Care Team Description 01/16/2018 Surgery Gastroenterology Reg Scruggs MD COLONOSCOPY [address] [facility] [address] [place] [address] 01/16/2018 Procedure Pass Gastroenterology 01/16/2018 [facility] Reg Scruggs MD Colitis Encounter [address] [facility] [address] [place] [address] as of this encounter Visit Diagnoses Not on filein this encounter
--- OUTSIDE RECORDS SUMMARY | 2017-11-28 19:57 | XMS REPORT | Encounter Summary ---
Author Author [facility] Organization [facility] Address Unknown Phone Unavailable Care Team Providers Care Monument Letterer Name Role Phone Guerita Pillai MD PCP Encounter Details Date Type Department Care Team Description 11/28/2017 Hospital QV LAB Mag Lira MBBS Chronic kidney disease , Encounter [address] [facility] [address] stage 3 (moderate) [place] [address] [address] [place], [place] [id number] Social History Tobacco Use Types Packs/Day Years [...] Surgery Gastroenterology Reg Scruggs MD COLONOSCOPY [address] [place] [address] [phone] 01/16/2018 Procedure Pass Gastroenterology 01/16/2018 [facility] Reg Scruggs MD Colitis Encounter [address] [facility] [address] [place] [address] as of this encounter Results * MICROALB/CR RATIO-URINE RANDOM (11/27/2017 3:40 PM) Component Value Ref Range Microalbumin, Random 49.3 (H) <19 MCG/ML Creatinine, Random 158 MG/DL Microalbumin/CR ratio 31.20 (H)Comment: NOTE NEW REFERENCE RANGES <30 ug/ mg Urine Specimen Performing Laboratory Urine [facility] [address] [place] [address] in this encounter Visit Diagnoses Diagnosis CKD (chronic kidney disease) stage 3, GFR 30-59 ml/min Chronic kidney disease, Stage III (moderate) Admitting Diagnoses Diagnosis Chronic kidney disease, stage 3 (moderate)
--- OUTSIDE RECORDS SUMMARY | 2017-11-28 19:57 | XMS REPORT | Encounter Summary ---
Author Author [facility] Organization [facility] Address Unknown Phone Unavailable Care Team Providers Care Support Coordinator Name Role Phone Guerita Pillai MD PCP Reason for Visit * Reason Comments Medication Refill Encounter Details Date Type Department Care Team Description 09/24/2017 Refill [facility] Lani Godinez ARNP Physicians - Internal [address] [facility] Medicine [address] [place] [address] [address] [facility] [phone] [place] [address] Social History Tobacco Use Types [...] encounter Miscellaneous Notes * Telephone Encounter - Jojo Giron LPN - 09/24/2017 8:21 AM REVENUE STAMPER Formatting of this note may be different from the original. Hannah Rome Nurse [facility] Happy New Year! My Pantoprazole prescription from my previous Beach Attendant, Dr. Franz in [place], is out of refills. Can you send this in to [facility] in [place] for me? My current prescription is 90 qty 40mg tablets, one per day. Thanks, Hannah Refill request received for Pantoprazole 40mg Last OV 06/04/17 w/ Dr. Rouse Routing to [facility] for approval/refusal in this encounter Plan of Treatment Date Type Specialty Care Team Description 01/16/2018 Surgery Gastroenterology Reg Scruggs MD COLONOSCOPY [address] [facility] [address] [place] [address] 01/16/2018 Procedure Pass Gastroenterology 01/16/2018 [facility] Reg Scruggs MD Colitis Encounter [address] [facility] [address] [place] [address] as of this encounter Visit Diagnoses Not on filein this encounter
--- OUTSIDE RECORDS SUMMARY | 2017-11-28 19:57 | XMS REPORT | Encounter Summary ---
Author Author [facility] Organization [facility] Address Unknown Phone Unavailable Care Team Providers Care Figure Clerk Name Role Phone Guerita Pillai MD PCP Reason for Visit * Reason Comments Infusion Therapy * Treatment (Routine) Status Reason Specialty Diagnoses / Referred By Referred To Procedures Contact Contact Authorized Diagnoses Kurt Rouse, BhLaurie Infusion Ther Indeterminate Cl colitis 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) [place] [address] [place] [address] [phone] Social History Tobacco Use Types Packs/Day Years Used Date Former Smoker Quit: 01/30/1996 Smokeless Tobacco: Never Used Alcohol Use Drinks/Week oz/Week Comments Yes Sex Assigned at Date Recorded Not on file as of this encounter Last Filed Vital Signs Vital Sign Reading Time Taken Blood Pressure 143/78 10/04/2017 4:00 PM DIRECTOR EHS Pulse 75 10/04/2017 4:00 PM DIRECTOR EHS Temperature 36.4 C (97.5 F) 10/04/2017 2:45 PM DIRECTOR EHS Respiratory Rate - - Oxygen Saturation 97% 10/04/2017 4:00 PM DIRECTOR EHS Inhaled Oxygen - - Concentration Weight 86.1 kg (189 lb 13.1 oz) 10/04/2017 2:45 PM DIRECTOR EHS Height - - Body Mass Index 28.53 10/04/2017 2:45 PM DIRECTOR EHS in this encounter Functional Status Functional Status [...] this encounter Instructions * Patient Instructions - Lynn Love RN - 10/04/2017 3:00 PM DIRECTOR EHS Post infusion emergency medical treatment: Go to the closest Emergency Department or call 911. For non-urgent questions or concerns, call [phone] after 0900 the following day(including weekends & holidays). For urgent medical questions, call [phone] and ask to speak to the On-Call Physician covering for the physician prescribing your infusion medication. Pt learning assessment complete. Pt education provided on previous clinic visit. Pt denies need for additional education related to diagnosis, test or treatment. in this encounter Plan of Treatment Date Type Specialty Care Team Description 01/16/2018 Surgery Gastroenterology Reg Scruggs MD [facility]ONOSCOPY [address] [facility] [address] [place] [address] 01/16/2018 Procedure Pass Gastroenterology 01/16/2018 [facility] Reg Scruggs MD Colitis Encounter [address] [facility] [address] [place], [place] [id number] as of this encounter Results * COMPREHENSIVE METABOLIC PANEL (10/04/2017 2:51 PM) Component Value Ref Range Sodium 142 137 - 147 MMOL/L Potassium 3.7 3.5 - 5.1 MMOL/L Chloride 106 98 - 110 MMOL/L Glucose 118 (H) 70 - 100 MG/DL Blood Urea Nitrogen 18 7 - 25 MG/DL Creatinine 1.13 (H) 0.4 - 1.00 MG/DL Calcium 10.0 8.5 - 10.6 MG/DL Total Protein 7.0 6.0 - 8.0 G/DL Total Bilirubin 0.5 0.3 - 1.2 MG/DL Albumin 4.4 3.5 - 5.0 G/DL Alk Phosphatase 55 25 - 110 U/L AST (SGOT) 27 7 - 40 U/L CO2 28 21 - 30 MMOL/L ALT (SGPT) 26 7 - 56 U/L Anion Gap 8 3 - 12 eGFR Non 48 (L) >60 mL/min Comment: The eGFR is not validated for use in drug dosing adjustments. Continue to use estimated creatinine clearance per dosing reference text. Please contact the Clinical Pharmacist for questions. eGFR 58 (L) >60 mL/min Comment: The eGFR is not validated for use in drug dosing adjustments. Continue to use estimated creatinine clearance per dosing reference text. Please contact the Clinical Pharmacist for questions. Specimen Performing Laboratory Blood [facility] [address] [place] [address] * CBC AND DIFF (10/04/2017 2:51 PM) Component Value Ref Range White Blood Cells 6.2 4.5 - 11.0 K/UL RBC 4.28 4.0 - 5.0 M/UL Hemoglobin 13.4 12.0 - 15.0 GM/DL Hematocrit 39.6 36 - 45 % MCV 92.5 80 - 100 FL MCH 31.3 26 - 34 PG MCHC 33.8 32.0 - 36.0 G/DL RDW 14.1 11 - 15 % Platelet Count 282 150 - 400 K/UL MPV 8.1 7 - 11 FL Neutrophils 62 41 - 77 % Lymphocytes 22 (L) 24 - 44 % Monocytes 7 4 - 12 % Eosinophils 8 (H) 0 - 5 % Basophils 1 0 - 2 % Absolute Neutrophil Count 3.90 1.8 - 7.0 K/UL Absolute Lymph Count 1.40 1.0 - 4.8 K/UL Absolute Monocyte Count 0.40 0 - 0.80 K/UL Absolute Eosinophil Count 0.50 (H) 0 - 0.45 K/UL Absolute Basophil Count 0.00 0 - 0.20 K/UL Specimen Performing Laboratory Blood [facility] [address] [place] [address] in this encounter Visit Diagnoses Diagnosis Indeterminate colitis - Primary Other and unspecified noninfectious gastroenteritis and colitis Administered Medications Medication Order MAR Action Action Date Dose Rate Site acetaminophen (TYLENOL) tablet 500 mg Given 10/04/2017 500 mg 500 mg, Oral, ONCE, 1 dose, Sat10/04/17 15:24 DIRECTOR EHS at 1500, Maintenance Course: TOTAL ACETAMINOPHEN DOSE NOT TO EXCEED 4GM DAILY diphenhydrAMINE (BENADRYL) injection 25 Given 10/04/2017 25 mg mg 15:26 DIRECTOR EHS 25 mg, Intravenous, ONCE, 1 dose, 10/04/17 at 1500, Maintenance Course methylPREDNISolone (SOLU-MEDROL PF) Given 10/04/2017 40 mg injection 40 mg 15:25 DIRECTOR EHS 40 mg, Intravenous, ONCE, 1 dose, 10/04/17 at 1500 vedolizumab (ENTYVIO) 300 mg in sodium Given - New 10/04/2017 300 mg 500 mL/hr chloride 0.9% (NS) 250 mL IVPB Bag 15:40 DIRECTOR EHS 300 mg, Intravenous, 250 mL, Administer over 30 Minutes, ONCE, 1 dose, Sat10/04/17 at 1530, Maintenance Course: Following infusion, flush with 30 mL of sterile 0.9% sodium chloride injection. in this encounter
--- OUTSIDE RECORDS SUMMARY | 2017-11-28 19:57 | XMS REPORT | Encounter Summary ---
Author Author [facility] Organization [facility] Address Unknown Phone Unavailable Care Team Providers Care Channel Marketing Specialist Name Role Phone Guerita Pillai MD PCP Encounter Details Date Type Department Care Team Description 09/18/2017 Orders Only [facility] Al Mancini MD Physicians - Internal [address] [facility] Medicine [address] [place] [address] [address] [facility] MED [phone] [place] [address] Social History Tobacco Use Types [...] Surgery Gastroenterology Reg Scruggs MD COLONOSCOPY [address] [facility] [address] [place], [place] [id number] 01/16/2018 Procedure Pass Gastroenterology 01/16/2018 [facility] Reg Scruggs MD [facility]itis Encounter [address] [facility] [address] [place], [place] [id number] Name Priority Associated Diagnoses Date/Time CBC AND DIFF Routine 09/17/2017 12:00 AM DISTILLERY MANAGER as of this encounter Visit Diagnoses Not on filein this encounter
--- OUTSIDE RECORDS SUMMARY | 2017-11-28 19:58 | XMS REPORT | Continuity of Care Document ---
Author Author [facility] Organization [facility] Address Unknown Phone Unavailable Allergies Active Description Code Type Severity Reaction Onset Reported/Identified Relationship to Patient Clinical Status Yes No Known Drug Allergies [id number] Drug Allergy Unknown N/A 02/09/2013 Medications There is no data. Problems Date Dx Coded Attending Type Code Diagnosis Diagnosed By 02/09/2013 SHEN DAO, FELICIA Chicas Ot 244.9 HYPOTHYROIDISM NOS 02/09/2013 SHEN DAO, FELICIA Chicas Ot 272.4 HYPERLIPIDEMIA NEC/NOS 02/09/2013 SHEN DAO, FELICIA Chicas Ot 562.10 DIVERTICULOSIS COLON (W/O MENT OF HEMORR 03/25/2013 Ot 593.9 RENAL URETERAL DIS NOS 12/04/2013 NAEEM DAO, ASHUTOSH Cruz Ot 473.9 CHRONIC SINUSITIS NOS 12/04/2013 NAEEM DAO, ASHUTOSH Cruz Ot 490 BRONCHITIS NOS 12/04/2013 NAEEM DAO, ASHUTOSH Cruz Ot 780.4 DIZZINESS AND GIDDINESS 05/23/2014 JANETTE HURLEY DOQUELINE S Ot 466.0 ACUTE BRONCHITIS 05/23/2014 JANETTE HURLEY DOQUELINE S Ot 786.2 COUGH 08/17/2014 BERENICE GENAO Ot V76.12 08/25/2015 JANETTE HURLEY DOQUELINE S Ot Z12.31 09/02/2015 JANETTE HURLEY DOQUELINE S Ot Z12.31 04/25/2016 MAIRA SMALLS APRN Ot E87.6 HYPOKALEMIA 04/25/2016 MAIRA SMALLS [employer] OTHER RANKS Ot H53.8 OTHER VISUAL DISTURBANCES 04/25/2016 MAIRA SMALLS [employer] OTHER RANKS Ot N39.0 URINARY TRACT INFECTION, SITE NOT SPECIF 04/27/2016 MAIRA SMALLS [employer] OTHER RANKS Ot E87.6 HYPOKALEMIA 04/27/2016 MAIRA SMALLS [employer]BER OTHER RANKS Ot H53.8 OTHER VISUAL DISTURBANCES 04/27/2016 SMALLS MAIRA Aileen [employer]BER OTHER RANKS Ot N39.0 URINARY TRACT INFECTION, SITE NOT SPECIF 10/04/2016 Ot V76.12 OTH SCREEN MAMMO-MALIGN NEOPLASM OF OZZY 10/04/2016 Ot 724.2 LUMBAGO 10/04/2016 Ot 789.00 ABDOMINAL PAIN, UNSPECIFIED SITE 10/04/2016 SHEN DAO, FELICIA Chicas Ot V72.84 EXAM PRE-OPERATIVE NOS 10/04/2016 Ot 593.9 RENAL URETERAL DIS NOS 10/04/2016 PRATEEK HURLEY DO S Ot V76.12 OTH SCREEN MAMMO-MALIGN NEOPLASM OF OZZY 10/04/2016 VANBECELAERE, BERENICE M CONTENT PUBLISHER Ot 715.35 LOC OSTEOARTH NOS-PELVIS 10/04/2016 VANBECELAERE BERENICE M CONTENT PUBLISHER Ot 715.36 LOC OSTEOARTH NOS-L/LEG 10/04/2016 VANBECELAERE, BERENICE M CONTENT PUBLISHER Ot 719.06 JOINT EFFUSION-L/LEG 10/04/2016 Ot 466.0 ACUTE BRONCHITIS 10/04/2016 Ot 786.2 COUGH 10/04/2016 VANBECELAERE, BERENICE M CONTENT PUBLISHER Ot V76.12 OTH SCREEN MAMMO-MALIGN NEOPLASM OF OZZY 10/04/2016 PRATEEK HURLEY DO S Ot Z12.31 ENCNTR SCREEN MAMMOGRAM FOR MALIGNANT NE 10/05/2016 KEILY HURLEY DOLINE S Ot Z12.31 ENCNTR SCREEN MAMMOGRAM FOR MALIGNANT NE 10/17/2016 PRATEEK HURLEY DO S Ot Z12.31 ENCNTR SCREEN MAMMOGRAM FOR MALIGNANT NE 01/15/2017 Ot V76.12 OTH SCREEN MAMMO-MALIGN NEOPLASM OF OZZY 01/15/2017 Ot 724.2 LUMBAGO 01/15/2017 Ot 789.00 ABDOMINAL PAIN, UNSPECIFIED SITE 01/15/2017 SHEN DAO, FELICIA Chicas Ot V72.84 EXAM PRE-OPERATIVE NOS 01/15/2017 Ot 593.9 RENAL URETERAL DIS NOS 01/15/2017 PRATEEK HURLEY DO S Ot V76.12 OTH SCREEN MAMMO-MALIGN NEOPLASM OF OZZY 01/15/2017 VANBERENICE SOTO M CONTENT PUBLISHER Ot 715.35 LOC OSTEOARTH NOS-PELVIS 01/15/2017 BERENICE GENAO CONTENT PUBLISHER Ot 715.36 LOC OSTEOARTH NOS-L/LEG 01/15/2017 BERENICE GENAO CONTENT PUBLISHER Ot 719.06 JOINT EFFUSION-L/LEG 01/15/2017 Ot 466.0 ACUTE BRONCHITIS 01/15/2017 Ot 786.2 COUGH 01/15/2017 BERENICE GENAO CONTENT PUBLISHER Ot V76.12 OTH SCREEN MAMMO-MALIGN NEOPLASM OF OZZY 01/15/2017 ORENDPRATEEK DURON DO S Ot Z12.31 ENCNTR SCREEN MAMMOGRAM FOR MALIGNANT NE 01/15/2017 LUPENDER PRATEEK LLANES S Ot Z12.31 ENCNTR SCREEN MAMMOGRAM FOR MALIGNANT NE 01/23/2017 TERESA ANNA [employer] OTHER RANKS Ot R53.83 OTHER FATIGUE 01/23/2017 TERESA ANNA [employer] MEMBER OTHER RANKS Ot R60.9 EDEMA, UNSPECIFIED 01/23/2017 TERESA ANNA [employer] MEMBER OTHER RANKS Ot R53.83 OTHER FATIGUE 01/23/2017 TERESA ANNA [employer] MEMBER OTHER RANKS Ot R60.9 EDEMA, UNSPECIFIED 01/23/2017 TERESA ANNA [employer] MEMBER OTHER RANKS Ot R53.83 OTHER FATIGUE 01/23/2017 TERESA ANNA [employer] MEMBER OTHER RANKS Ot R60.9 EDEMA, UNSPECIFIED 01/25/2017 TERESA ANNA [employer] MEMBER OTHER RANKS Ot R53.83 OTHER FATIGUE 01/25/2017 TERESA ANNA [employer] MEMBER OTHER RANKS Ot R60.9 EDEMA, UNSPECIFIED 01/28/2017 TERESA ANNA [employer] MEMBER OTHER RANKS Ot R53.83 OTHER FATIGUE 01/28/2017 TERESA ANNA [employer] MEMBER OTHER RANKS Ot R60.9 EDEMA, UNSPECIFIED 02/13/2017 TERESA ANNA [employer] MEMBER OTHER RANKS Ot R53.83 OTHER FATIGUE 02/13/2017 TERESA ANNA [employer] MEMBER OTHER RANKS Ot R60.9 EDEMA, UNSPECIFIED 02/28/2017 TERESA ANNA [employer] MEMBER OTHER RANKS Ot R53.83 OTHER FATIGUE 02/28/2017 TERESA ANNA [employer] MEMBER OTHER RANKS Ot R60.9 EDEMA, UNSPECIFIED 03/04/2017 UTECH, CARLITO [employer] MEMBER OTHER RANKS Ot K51.919 ULCERATIVE COLITIS, UNSP WITH UNSPECIFIE 03/04/2017 UTECH, CARLITO [employer] MEMBER OTHER RANKS Ot R10.84 GENERALIZED ABDOMINAL PAIN 03/04/2017 UTECH, CARLITO [employer] MEMBER OTHER RANKS Ot R60.9 EDEMA, UNSPECIFIED 03/04/2017 UTECH, CARLITO [employer] MEMBER OTHER RANKS Ot R74.8 ABNORMAL LEVELS OF OTHER SERUM ENZYMES 03/21/2017 UTECH, CARLITO [employer] MEMBER OTHER RANKS Ot K51.919 ULCERATIVE COLITIS, UNSP WITH UNSPECIFIE 03/21/2017 UTECH, CARLITO [employer] MEMBER OTHER RANKS Ot R10.84 GENERALIZED ABDOMINAL PAIN 03/21/2017 UTECH, CARLITO [employer] MEMBER OTHER RANKS Ot R60.9 EDEMA, UNSPECIFIED 03/21/2017 UTECH, CARLITO [employer] MEMBER OTHER RANKS Ot R74.8 ABNORMAL LEVELS OF OTHER SERUM ENZYMES 10/21/2017 ORENDER DO, PRATEEK S Ot Z12.31 ENCNTR SCREEN MAMMOGRAM FOR MALIGNANT NE 10/21/2017 ORENDER DO, PRATEEK S Ot Z12.31 ENCNTR SCREEN MAMMOGRAM FOR MALIGNANT NE 10/21/2017 UTECH, CARLITO [employer] MEMBER OTHER RANKS Ot K51.919 ULCERATIVE COLITIS, UNSP WITH UNSPECIFIE 10/21/2017 UTECH, CARLITO [employer] MEMBER OTHER RANKS Ot R10.84 GENERALIZED ABDOMINAL PAIN 10/21/2017 UTECH, CARLITO [employer] MEMBER OTHER RANKS Ot R60.9 EDEMA, UNSPECIFIED 10/21/2017 UTECH, CARLITO [employer] MEMBER OTHER RANKS Ot R74.8 ABNORMAL LEVELS OF OTHER SERUM ENZYMES 10/21/2017 ORENDER DO, PRATEEK S Ot Z12.31 ENCNTR SCREEN MAMMOGRAM FOR MALIGNANT NE 10/23/2017 ORENDER DO, PRATEEK S Ot Z12.31 ENCNTR SCREEN MAMMOGRAM FOR MALIGNANT NE 10/23/2017 TERESA ANNA [employer] MEMBER OTHER RANKS Ot R53.83 OTHER FATIGUE 10/23/2017 TERESA ANNA [employer] MEMBER OTHER RANKS Ot R60.9 EDEMA, UNSPECIFIED 10/23/2017 ORENDER DO, PRATEEK S Ot Z12.31 ENCNTR SCREEN MAMMOGRAM FOR MALIGNANT NE 10/24/2017 ORENDER DO, PRATEEK S Ot Z12.31 ENCNTR SCREEN MAMMOGRAM FOR MALIGNANT NE 10/24/2017 ORENDER DO, PRATEEK S Ot Z12.31 ENCNTR SCREEN MAMMOGRAM FOR MALIGNANT NE 11/14/2017 ORENDER DO, PRATEEK S Ot Z12.31 ENCNTR SCREEN MAMMOGRAM FOR MALIGNANT NE Procedures There is no data. Results Test Result Range Complete blood count (CBC) with automated white blood cell (WBC) differential - 04/25/16 14:24 Blood leukocytes automated count (number/volume) 10.0 10*3/uL 4.3-11.0 Blood erythrocytes automated count (number/volume) 4.66 10*6/uL 4.35-5.85 Venous blood hemoglobin measurement (mass/volume) 14.0 g/dL 11.5-16.0 Blood hematocrit (volume fraction) 42 % 35-52 Automated erythrocyte mean corpuscular volume 91 [foz_us] 80-99 Automated erythrocyte mean corpuscular hemoglobin (mass per erythrocyte) 30 pg 25-34 Automated erythrocyte mean corpuscular hemoglobin concentration measurement ( mass/volume) 33 g/dL 32-36 Automated erythrocyte distribution width ratio 13.1 % 10.0-14.5 Automated blood platelet count (count/volume) 284 10*3/uL 130-400 Automated blood platelet mean volume measurement 9.7 [foz_us] 7.4-10.4 Automated blood neutrophils/100 leukocytes 67 % 42-75 Automated blood lymphocytes/100 leukocytes 23 % 12-44 Blood monocytes/100 leukocytes 9 % 0-12 Automated blood eosinophils/100 leukocytes 1 % 0-10 Automated blood basophils/100 leukocytes 1 % 0-10 Blood neutrophils automated count (number/volume) 6.7 10*3 1.8-7.8 Blood lymphocytes automated count (number/volume) 2.3 10*3 1.0-4.0 Blood monocytes automated count (number/volume) 0.9 10*3 0.0-1.0 Automated eosinophil count 0.1 10*3/uL 0.0-0.3 Automated blood basophil count (count/volume) 0.1 10*3/uL 0.0-0.1 Whole blood basic metabolic panel - 04/25/16 14:24 Serum or plasma sodium measurement (moles/volume) 143 mmol/L 135-145 Serum or plasma potassium measurement (moles/volume) 3.2 mmol/L 3.6-5.0 Serum or plasma chloride measurement (moles/volume) 107 mmol/L 98-107 Carbon dioxide 28 mmol/L 21-32 Serum or plasma anion gap determination (moles/volume) 8 mmol/L 5-14 Serum or plasma urea nitrogen measurement (mass/volume) 13 mg/dL 7-18 Serum or plasma creatinine measurement (mass/volume) 1.21 mg/dL 0.60-1.30 Serum or plasma urea nitrogen/creatinine mass ratio 11 NRG Serum or plasma creatinine measurement with calculation of estimated glomerular filtration rate 45 NRG Serum or plasma glucose measurement (mass/volume) 114 mg/dL 70-105 Serum or plasma calcium measurement (mass/volume) 9.6 mg/dL 8.5-10.1 Erythrocyte sedimentation rate by westergren method - 04/25/16 14:24 Erythrocyte sedimentation rate by westergren method 18 mm 0-30 Serum or plasma troponin i.cardiac measurement (mass/volume) - 04/25/16 14:24 Serum or plasma troponin i.cardiac measurement (mass/volume) < ng/ mL <0.30 THYROID STIMULATING HORMONE - 04/25/16 14:24 THYROID STIMULATING HORMONE 2.68 u[iU]/mL 0.35-4.94 Serum or plasma thyroxine (T4) free measurement (mass/volume) - 04/25/16 14:24 Serum or plasma thyroxine (T4) free measurement (mass/volume) 1.36 ng/dL 0.70-1.48 Complete urinalysis with reflex to culture - 04/25/16 15:06 Urine color determination YELLOW NRG Urine clarity determination CLEAR NRG Urine pH measurement by test strip 5 5-9 Specific gravity of urine by test strip 1.010 1.016- 1.022 Urine protein assay by test strip, semi-quantitative NEGATIVE NEGATIVE Urine glucose detection by automated test strip NEGATIVE NEGATIVE Erythrocytes detection in urine sediment by light microscopy NEGATIVE NEGATIVE Urine ketones detection by automated test strip NEGATIVE NEGATIVE Urine nitrite detection by test strip NEGATIVE NEGATIVE Urine total bilirubin detection by test strip NEGATIVE NEGATIVE Urine urobilinogen measurement by automated test strip (mass/volume) NORMAL NORMAL Urine leukocyte esterase detection by dipstick 1+ NEGATIVE Automated urine sediment erythrocyte count by microscopy (number/high power field) NONE NRG Automated urine sediment leukocyte count by microscopy (number/high power field ) [HPF] NRG Bacteria detection in urine sediment by light microscopy TRACE NRG Crystals detection in urine sediment by light microscopy NONE NRG Casts detection in urine sediment by light microscopy NONE NRG Mucus detection in urine sediment by light microscopy NEGATIVE NRG Complete urinalysis with reflex to culture YES NRG Bacterial urine culture - 04/25/16 15:06 URINE CULTURE RESULTS <10,000/ML NRG Serum or plasma lithium measurement (moles/volume) - 01/22/17 13:25 BNP level 23.6 pg/mL <100.0 Encounters ACCT No. Visit Date/Time Discharge Status Pt. Type Provider Facility Loc./Unit Complaint [id number] 10/23/2017 09:48:00 10/23/2017 23:59:59 CLS Outpatient PRATEEK HURLEY DO [facility] RAD SCREENING [id number] 02/06/2017 08:50:00 02/06/2017 23:59:59 CLS Outpatient CARLITO DANIEL [employer]BER OTHER RANKS [facility] RAD K51.919,R10.84 [id number] 01/22/2017 13:13:00 01/22/2017 23:59:59 CLS Outpatient TERESA ANNA [employer] OTHER RANKS [facility] CARD PEDAL EDEMA,FATIGUE [id number] 10/04/2016 09:44:00 10/04/2016 23:59:59 CLS Outpatient PRATEEK HURLEY DO [facility] RAD SCREENING [id number] 04/25/2016 14:10:00 04/25/2016 15:52:00 DIS Emergency MAIRA SMALLS [employer]BER OTHER RANKS [facility] ER BP CONCERNS BLURRED VISION /SHAKEY [id number] 08/23/2015 09:07:00 08/23/2015 23:59:59 CLS Outpatient PRATEEK HURLEY DO [facility] RAD SCREENING [id number] 07/30/2014 07:22:00 07/30/2014 23:59:59 CLS Outpatient BERENICE GENAO CONTENT PUBLISHER [facility] RAD SCREENING [id number] 02/24/2014 07:48:00 05/23/2014 00:01:00 DIS Outpatient PRATEEK HURLEY DO [facility] LAB COUGH ACUTE BRONCHITIS [id number] 12/04/2013 13:28:00 12/04/2013 23:59:59 CLS Emergency ASHUTOSH HARTLEY MD [facility] ER DIZZY/LIGHTHEADED [id number] 08/14/2013 15:17:00 08/14/2013 23:59:59 CLS Outpatient BERENICE GENAO CONTENT PUBLISHER [facility] RAD LT KNEE PAIN [id number] 08/11/2013 14:01:00 08/11/2013 23:59:59 CLS Outpatient BERENICE GENAO CONTENT PUBLISHER [facility] RAD LT KNEE PAIN [id number] 07/03/2013 07:00:00 07/03/2013 23:59:59 CLS Outpatient PRATEEK HURLEY DO S [facility] RAD ROUTINE [id number] 02/09/2013 07:41:00 02/09/2013 10:30:00 DIS Outpatient FELICIA GOTTI MD [facility] SDC RECTAL BLEEDING [id number] 02/04/2013 07:25:00 02/04/2013 23:59:59 CLS Outpatient FELICIA GOTTI MD [facility] PREOP RECTAL BLEEDING [id number] 05/24/2014 16:45:00 Document Registration [id number] 03/26/2013 00:00:00 Document Registration [id number] 01/05/2013 07:56:00 Document Registration [id number] 12/17/2012 08:02:00 Document Registration [id number] 12/14/2011 09:37:00 Document Registration
--- OUTSIDE RECORDS SUMMARY | 2017-11-28 19:58 | XMS REPORT | Encounter Summary ---
Author Author [facility] Organization [facility] Address Unknown Phone Unavailable Care Team Providers Care Acetylene Cylinder Packing Mixer Name Role Phone Guerita Pillai MD PCP Reason for Visit * Reason Comments Prior Authorization Voltaren Gel Encounter Details Date Type Department Care Team Description 09/03/[address] [facility] Al Mancini MD Prior Authorization Physicians - Internal [address] (Voltaren Gel) Medicine [address] [place] [address] MED [phone] [place] [address] Social History Tobacco Use Types [...] encounter Miscellaneous Notes * Telephone Encounter - Lynn Sanford RN - 09/04/2017 3:06 PM YEAST PUSHER Received approval letter from [employer]. Placed in [employer]. Auth# [id number] Approval Dates: 09/04/17-09/22/18 Notified pharmacy of approval via fax. * Telephone Encounter - Lynn Sanford RN - 09/04/2017 11:18 AM YEAST PUSHER PA form filled out and faxed to [employer] at [phone]. Will await determination. * Telephone Encounter - Peter Osuna - 09/04/2017 10:01 AM YEAST PUSHER Received PA request from [employer] for diclofenac 1% gel. PA form printed from [employer]. Put in RN's box for completion. Routing to RN for review. * Telephone Encounter - Lynn Sanford RN - 09/03/2017 10:02 AM YEAST PUSHER ----- Message ----- From: Hannah Hernandez Sent: 09/03/2017 9:11 AM To: [facility] Subject: Prescription Question When I went to pick the Diclofenac prescription on Saturday [employer] said it had to be pre approved. Just following up to see if they contacted you and this is moving forward. Please let me know. Thanks, Hannah in this encounter Plan of Treatment Date Type Specialty Care Team Description 01/16/2018 Surgery Gastroenterology Reg Scruggs MD COLONOSCOPY [address] [place] [address] [phone] 01/16/2018 Procedure Pass Gastroenterology 01/16/2018 [facility] Reg Scruggs MD Colitis Encounter [address] [place] [address] [phone] as of this encounter Visit Diagnoses Not on filein this encounter
--- OUTSIDE RECORDS SUMMARY | 2017-11-28 19:58 | XMS REPORT | Encounter Summary ---
Author Author [facility] Organization [facility] Address Unknown Phone Unavailable Care Team Providers Care Infrastructure Tech Name Role Phone Guerita Pillai MD PCP Reason for Visit * Reason Comments Joint Pain Encounter Details Date Type Department Care Team Description 08/30/2017 Office Visit [facility] Al Mancini MD Polyarthralgia (Primary Physicians - Internal [address] Dx); Medicine [place] [address] MOON positive; [address] [place] [address] IBD (inflammatory bowel [address] MED [phone] disease); OFFICE BLDG Inflammatory arthropathy; [place], [place] Osteoarthritis, [address] unspecified [phone] osteoarthritis type, unspecified site; Trigger little finger of right hand Social History Tobacco Use Types Packs/Day Years Used Date Former Smoker Quit: 01/30/1996 Smokeless Tobacco: Never Used Alcohol Use Drinks/Week oz/Week Comments Yes Sex Assigned at Date Recorded Not on file as of this encounter Last Filed Vital Signs Vital Sign Reading Time Taken Blood Pressure 140/80 08/30/2017 11:24 AM FASHION PATTERNMAKER Pulse 68 08/30/2017 11:24 AM FASHION PATTERNMAKER Temperature 36.8 C (98.2 F) 08/30/2017 11:24 AM FASHION PATTERNMAKER Respiratory Rate 16 08/30/2017 11:24 AM FASHION PATTERNMAKER Oxygen Saturation 97% 08/30/2017 11:24 AM FASHION PATTERNMAKER Inhaled Oxygen - - Concentration Weight 84.8 kg (187 lb) 08/30/2017 11:24 AM FASHION PATTERNMAKER Height 173.7 cm (5' 8.39") 08/30/2017 11:24 AM FASHION PATTERNMAKER Body Mass Index 28.11 08/30/2017 11:24 AM FASHION PATTERNMAKER in this encounter Functional Status Functional Status [...] impairment: No 11/23/2016 as of this encounter Instructions * Patient Instructions - Al Mancini MD - 08/31/2017 11:29 AM FASHION PATTERNMAKER Please review the post injection handout. Rest the injected area for 48 hours. in this encounter Progress Notes * Al Mancini MD - 08/30/2017 11:30 AM FASHION PATTERNMAKER Formatting of this note may be different from the original. Date of Service: 08/30/2017 Subjective: Hannah Hernandez is a 66 y.o. female. 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 Here for joint pain. She reports that her right 5th finger had trouble the first time she flares, everything improved but this. It stayed stiff. She started getting stiff at night again about 10 days ago. Through the hands. Pain would wake her up at night. Manager Zone in right hand was poor and she couldn't make a fist. The stiffness improves over the day. She can make a fist now, but not in the AM. Tingling developed in the left hand all joints began getting stiff - knees, feet, shoulders. Swelling has been mild in the left leg - this is typical. Right right hand is swollen. Ankles have been okay. No skin rash. Kidney fx normalized. For her joint pain she has been doing compression glove at night and exercises. 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 mini colonoscopy 03/16/2016 Family History Problem Relation Age of Onset Heart Disease Mother Arthritis Mother Heart Failure Mother Cancer Father Thyroid Disease Other Hypertension Paternal Grandfather Arthritis Paternal Grandfather Irritable Bowel Disease Brother Autoimmune Disease Neg Hx Ulcerative Colitis Neg Hx Inflammatory Bowel Disease Neg Hx Cancer-Colon Neg Hx Social History Social History Marital status: Spouse name: N/A Number of children: N/A Years of education: N/A Social History Main Topics Smoking status: Former Smoker Quit date: 01/30/1996 Smokeless tobacco: Never Used Alcohol use Yes Drug use: No Sexual activity: Not Asked Other Topics Concern None Social History Narrative Review of Systems Musculoskeletal: Positive for arthralgias and joint swelling. All other systems reviewed and are negative. Objective: ACETAMINOPHEN (TYLENOL PO) Take by mouth. azaTHIOprine (IMURAN) 50 mg tablet Take 2.5 tablets by mouth daily. Dose change on 08-22-2017 azelastine(+) (ASTELIN) 137 mcg (0.1 %) nasal spray INSTILL 2 SPRAYS INTO EACH NOSTRIL BID ERGOCALCIFEROL (VITAMIN D2) (VITAMIN D PO) Take 5,000 Units by mouth daily. FEXOFENADINE HCL (CELINE PO) Take by mouth. L.ACID/L.CASEI/B.BIF/B.KATY/FOS (PROBIOTIC BLEND PO) Take by mouth daily. levothyroxine (SYNTHROID) 50 mcg tablet TK 1 T PO QD Levothyroxine 75 mcg cap Take 50 mcg by mouth daily. mometasone (NASONEX) 50 mcg/actuation nasal spray Apply 2 Sprays to each nostril as directed daily. pantoprazole DR (PROTONIX) 40 mg tablet Take 40 mg by mouth daily. prednisone (DELTASONE) 5 mg tablet Take 35 mg PO for 7 days, 30 mg PO for 7 days, 25 mg PO for 7 days, 20 mg PO for 7 days, then 10 mg PO for 7 days then stop rosuvastatin (CRESTOR) 5 mg tablet Take 5 mg by mouth every 48 hours. Vitals: 08/30/17 1124 BP: 140/80 Pulse: 68 Resp: 16 Temp: 36.8 C (98.2 F) TempSrc: Temporal SpO2: 97% Weight: 84.8 kg (187 lb) Height: 173.7 cm (68.39") Body mass index is 28.11 kg/(m^2). Physical Exam Assessment and Plan: 1. Polyarthralgia - no synovitis. Tenosynovitis present with triggering 2. Right 5th finger tenosynovitis 3. Osteoarthritis of multiple joints 4. Question IBD-associated arthropathy - pretty subtle features overall suspect more related to OA. 5. IBD, indeterminate colitis 6. Numbness/tingling Plan: 1. Discussed options 2. Labs today seen below. 3. Refer for EMG for numbness/tingling 4. I did offer and provide right 5th finger flexor tendon sheath injection for tenosynovitis. See separate procedure note. No complications. Post-injection instructions provided. 5. Xray today seen below. Hand xray reviewed personally. Multiple areas of degenerative changes in the hands. 6. Try topical voltaren gel. RTC 3-4mo Al Mancini MD Orders Placed This Encounter HAND MIN 3 VIEWS BILATERAL C REACTIVE PROTEIN (CRP) today SED RATE today MPO/CT-3 today EMG ORDER diclofenac(+) (VOLTAREN) 1 % topical gel in this encounter Procedure Notes * Al Mancini MD - 08/30/2017 11:30 AM FASHION PATTERNMAKER Associated Order(s): ARTHROCENTESIS-CLINIC Pre-Procedure Diagnose(s): Polyarthralgia; MOON positive; IBD (inflammatory bowel disease); Inflammatory arthropathy; Osteoarthritis, unspecified osteoarthritis type, unspecified site; Trigger little finger of right hand Written informed consent was obtained and scanned into the chart. The site was marked and sterilized. Location: right 5th finger flexor tenosynovitis - trigger finger injection Injection: DepoMedrol 16mg plus Lidocaine 3mg. Procedure done by: Al Mancini MD Written post-injection instructions were given. No complications in this encounter Plan of Treatment Date Type Specialty Care Team Description 01/16/2018 Surgery Gastroenterology Reg Scruggs MD [address] [address] [facility] [address] [place] [address] [phone] 01/16/2018 Procedure Pass Gastroenterology 01/16/2018 [facility] Reg Scruggs MD Colitis Encounter [address] [facility] [address] [place] [address] [phone] as of this encounter Procedures Procedure Name Priority Date/Time Associated Diagnosis Comments ARTHROCENTESIS-CLINIC Routine 08/31/2017 Polyarthralgia Results for this 11:29 AM FASHION PATTERNMAKER MOON positive procedure are in the IBD (inflammatory bowel results section. disease) Inflammatory arthropathy Osteoarthritis, unspecified osteoarthritis type, unspecified site Trigger little finger of right hand in this encounter Results * ARTHROCENTESIS-CLINIC (08/31/2017 11:29 AM) Specimen Performing Laboratory IN CLINIC Narrative Al Mancini MD 08/31/2017 11:29 AM Written informed consent was obtained and scanned into the chart. The site was marked and sterilized. Location: right 5th finger flexor tenosynovitis - trigger finger injection Injection: DepoMedrol 16mg plus Lidocaine 3mg. Procedure done by: Al Mancini MD Written post-injection instructions were given. No complications * MPO/CT-3 (08/30/2017 1:50 PM) Component Value Ref Range Myeloperoxidase AB <0.2 Reference range: <0.4 (Negative) Unit: [facility] Serine Protease3 AB <0.2 Reference range: <0.4 (Negative) Unit: [facility] [employer] Specimen Performing Laboratory Blood REFERENCE LAB * SED RATE (08/30/2017 1:50 PM) Component Value Ref Range Sed Rate -ESR 3 0 - 30 MM/HR Specimen Performing Laboratory [facility] [address] [place] [address] * C REACTIVE PROTEIN (CRP) (08/30/2017 1:50 PM) Component Value Ref Range C-Reactive Protein 0.20 <1.0 MG/DL Specimen Performing Laboratory Blood [facility] [address] [place] [address] * HAND MIN 3 VIEWS BILATERAL (08/30/2017 [...] Interface, Radiant Results - 08/30/2017 2:07 PM FASHION PATTERNMAKER Bilateral hand 3 view INDICATION: 66-year-old female, [...] Abhishek Green M.D. on 08/30/2017 1:49 PM. in this encounter Visit Diagnoses Diagnosis Polyarthralgia - Primary Pain in joint, multiple sites MOON positive Other and unspecified nonspecific immunological findings IBD (inflammatory bowel disease) Other and unspecified noninfectious gastroenteritis and colitis Inflammatory arthropathy Arthropathy, unspecified, site unspecified Osteoarthritis, unspecified osteoarthritis type, unspecified site Trigger little finger of right hand Trigger finger (acquired) Administered Medications Medication Order MAR Action Action Date Dose Rate Site methylprednisolone acetate (DEPO-MEDROL) Given 08/30/2017 Finger 80 mg/mL 16 mg, lidocaine PF 1% (10 12:00 FASHION PATTERNMAKER mg/mL) 3 mg injectable mixture 0.5 mL, Cate-articular, ONCE, 1 dose, Sat08/30/17 at 1730 in this encounter
--- OUTSIDE RECORDS SUMMARY | 2017-11-28 19:58 | XMS REPORT | Encounter Summary ---
Author Author [facility] Organization [facility] Address Unknown Phone Unavailable Care Team Providers Care Superintendent Drilling Name Role Phone Guerita Pillai MD PCP Encounter Details Date Type Department Care Team Description 08/30/2017 [facility]ancini MD Pain in unspecified joint Encounter [address] [place] [address] [address] [place] [address] [phone] Social History Tobacco Use Types Packs/Day Years [...] impairment: No 11/23/2016 as of this encounter Medications at Time of Discharge Medication Sig. Disp. Refills Start Date End Date ACETAMINOPHEN (TYLENOL Take by mouth. PO) azaTHIOprine (IMURAN) 50 Take 2.5 tablets by mouth 98 tablet 5 2016 mg tablet daily. Dose change on 08-22-2017 azelastine(+) (ASTELIN) INSTILL 2 SPRAYS INTO 2 07/13/2017 137 mcg (0.1 %) nasal EACH NOSTRIL BID spray diclofenac(+) (VOLTAREN) Apply 2g to hands 3-4 300 g 3 08/30/2017 1 % topical gel times daily ERGOCALCIFEROL (VITAMIN Take 5,000 Units by mouth D2) (VITAMIN D PO) daily. FEXOFENADINE HCL (CELINE Take by mouth. PO) L.ACID/L.CASEI/B.BIF/B.LO Take by mouth daily. N/FOS (PROBIOTIC BLEND PO) levothyroxine (SYNTHROID) TK 1 T PO QD 0 05/07/2017 50 mcg tablet Levothyroxine 75 mcg cap Take 50 mcg by mouth daily. mometasone (NASONEX) 50 Apply 2 Sprays to each mcg/actuation nasal spray nostril as directed daily. prednisone (DELTASONE) 5 Take 35 mg PO for 7 days, 168 Tab 0 2016 mg tablet 30 mg PO for 7 days, 25 mg PO for 7 days, 20 mg PO for 7 days, then 10 mg PO for 7 days then stop rosuvastatin (CRESTOR) 5 Take 5 mg by mouth every mg tablet [address] Take 40 mg by mouth 09/24/2017 (PROTONIX) 40 mg tablet daily. as of this encounter Plan of Treatment Date Type Specialty Care Team Description 01/16/2018 Surgery Gastroenterology Reg Scruggs MD [address]OSCOPY [address] [facility] [place] [address] 01/16/2018 Procedure Pass Gastroenterology 01/16/2018 [facility] Reg Scruggs MD Colitis Encounter [address] [facility] [facility] [address] [place] [address] as of this encounter Results * [facility] REFERENCE TEST (10/04/2017 3:15 PM) Component Value Ref Range Test PROMETHEUS [facility] Reference Lab PROMETHEUS Results Ref Lab SHIPPED VIA [employer] PRIORITY OVERNIGHT ON 10/04/2017. RESULTS WILL BE SENT DIRECTLY TO THE ORDERING PHYSICIAN. Specimen Mail SERUM 2 GOLD TUBES Specimen Performing Laboratory REFERENCE LAB * MPO/WY-3 (08/30/2017 1:50 PM) Component Value Ref Range Myeloperoxidase AB <0.2 Reference range: <0.4 (Negative) Unit: [facility] Serine Protease3 AB <0.2 Reference range: <0.4 (Negative) Unit: [facility] Specimen Performing Laboratory Blood REFERENCE LAB * SED RATE (08/30/2017 1:50 PM) Component Value Ref Range Sed Rate -ESR 3 0 - 30 MM/HR Specimen Performing Laboratory Blood [facility] [address] [place] [address] * C REACTIVE PROTEIN (CRP) (08/30/2017 1:50 PM) Component Value Ref Range C-Reactive Protein 0.20 <1.0 MG/DL Specimen Performing Laboratory Blood [facility] [address] [place] [address] in this encounter Visit Diagnoses Diagnosis Polyarthralgia Pain in joint, multiple sites MOON positive Other and unspecified nonspecific immunological findings IBD (inflammatory bowel disease) Other and unspecified noninfectious gastroenteritis and colitis Inflammatory arthropathy Arthropathy, unspecified, site unspecified Osteoarthritis, unspecified osteoarthritis type, unspecified site Trigger little finger of right hand Trigger finger (acquired) Admitting Diagnoses Diagnosis Pain in unspecified joint Other specified abnormal immunological findings in serum Noninfective gastroenteritis and colitis, unspecified Unspecified osteoarthritis, unspecified site Trigger finger, right little finger
--- OUTSIDE RECORDS SUMMARY | 2017-11-28 19:58 | XMS REPORT | Encounter Summary ---
Author Author [facility] Organization [facility] Address Unknown Phone Unavailable Care Team Providers Care Hand Molder Name Role Phone Guerita Pillai MD PCP Encounter Details Date Type Department Care Team Description 08/30/2017 Hospital [facility] Al Mancini MD Encounter Hospital Radiology [address] [place] [address] [address] FLOOR [phone] [place] [address] [phone] Social History Tobacco Use Types Packs/Day Years [...] Surgery Gastroenterology Reg Scruggs MD COLONOSCOPY [address] [facility] [address] [place] [address] [phone] 01/16/2018 Procedure Pass Gastroenterology 01/16/2018 [facility] Reg Scruggs MD Colitis Encounter [address] [facility] [address] [place] [address] [phone] as of this encounter Results * HAND MIN 3 VIEWS BILATERAL (08/30/2017 [...] Interface, Radiant Results - 08/30/2017 2:07 PM MGMT ANALYST Bilateral hand 3 view INDICATION: 66-year-old female, [...]
[2017-11-28] MEDS ORDERED: MOME17SP9 (20:04)
[2017-11-28] MEDS ORDERED: AZAT50TA (20:04)
[2017-11-28] MEDS ORDERED: PANT40TA3 (20:04)
--- NOTE | 2017-11-28 20:49 | ED Cardiac General ---
History of Present Illness General Chief Complaint: Cardiac/General Problems Stated Complaint: BP 194/104, SHAKY Nursing Triage Note: HIGH BLOOD PRESSURE Source: patient, spouse Exam Limitations: no limitations History of Present Illness Date Seen by Provider: Nov 28, 2017 Time Seen by Provider: 20:44 Initial Comments Patient presents to ER by private conveyance with chief complaint that she was in a home where about her blood pressure because yesterday when she was at her electrical systems designer appointment it was 160/90. She says every time she took it continue to go up until it reached fecal 190/105. She says she then began to feel shaky so she came in to the ER. She is not having any chest pain, slurred speech, facial droop, weakness, numbness, loss control of her bowel or bladder, falls. She does not have a history of heart disease or stroke. She does not smoke cigarettes and she does not have a primary history of hypertension. She says her electrical systems designer told her blood pressure was high and that she should long 3 times a week. If it was continually high she would need to follow-up with him or her primary care physician. She sees a electrical systems designer because she is on his azathioprine and Intivia for ulcerative colitis. She has been on this off-and- on for the past year and it has immensely helped with her symptoms. Allergies and Home Medications Allergies Coded Allergies: No Known Drug Allergies (Unverified , 02/09/13) Home Medications Albuterol Sulfate 1 Puff Puff, 2 PUFF IH PRN, (Reported) Calcium Citrate/Vitamin D3 1 Each Tablet, 1 EACH PO DAILY, (Reported) Mesalamine 1.2 Gm Tablet.dr, 1.2 GM PO DAILY, (Reported) Rosuvastatin Calcium 5 Mg Tablet, 1 EACH PO --, (Reported) [Canasa] , 1 SUPP.RECT RC WEEK, (Reported) [levothyroxine 75 mcg] , 75 MCG PO DAILY, (Reported) Patient Home Medication List Home Medication List Reviewed: Yes Review of Systems Constitutional: No chills, No diaphoresis EENTM: No Blurred Vision, No Double Vision Respiratory: Denies Cough, Denies Shortness of Air Cardiovascular: Denies Chest Pain, Denies Edema, Denies Irregular Heart Rate, Denies Palpitations, Denies Syncope Gastrointestinal: Denies Abdominal Pain, Denies Constipated, Denies Diarrhea, Denies Nausea Genitourinary: Denies Burning, Denies Discharge, Denies Drainage Musculoskeletal: No back pain, No joint pain Skin: No pruritus, No rash Psychiatric/Neurological: Denies Headache, Denies Numbness, Denies Paresthesia , Denies Pre-Existing Deficit, Denies Seizure, Denies Tingling, Denies Tremors, Denies Weakness Past Acawwpm-Cujvct-Yswtvb Hx Patient Social History Alcohol Use: Regular Use Alcohol Beverage of Choice: Wine Recreational Drug Use: No Smoking Status: Former Smoker Former Smoker, Quit: Apr 23, 1996 2nd Hand Smoke Exposure: No Recent Foreign Travel: No Contact w/Someone Who Travel: No Recent Infectious Disease Expo: No Recent Hopitalizations: No Immunizations Up To Date Date of Pneumonia Vaccine: Jun 23, 2013 Date of Influenza Vaccine: Jun 23, 2013 Seasonal Allergies Seasonal Allergies: No Surgeries History of Surgeries: Yes (COLONOSCOPY DNC, dilation of esophagus) Surgeries: Adenoidectomy, Tonsillectomy Respiratory History of Respiratory Disorde: No (mild copd) Respiratory Disorders: COPD Cardiovascular History of Cardiac Disorders: Yes Cardiac Disorders: High Cholesterol Neurological History of Neurological Disord: No Genitourinary History of Genitourinary Disor: Yes (RENAL IMPAIRMENT) Gastrointestinal History of Gastrointestinal Di: Yes (ULCERATIVE COLITIS) Gastrointestinal Disorders: Colitis, Gastroesophageal Reflux Musculoskeletal History of Musculoskeletal Dis: Yes Musculoskeletal Disorders: Arthritis Endocrine History of Endocrine Disorders: Yes Endocrine Disorders: Hypothyroidsim HEENT History of HEENT Disorders: No Cancer History of Cancer: No Psychosocial History of Psychiatric Problem: No Integumentary History of Skin or Integumenta: No Blood Transfusions History of Blood Disorders: No Adverse Reaction to a Blood Tr: No Physical Exam Vital Signs Vital Signs - First Documented 11/28/17 20:04 Temp 96.3 Pulse 75 Resp 16 B/P (MAP) 195/100 (131) Pulse Ox 98 O2 Delivery Room Air Capillary Refill : Less Than 3 Seconds General Appearance: No Apparent Distress, WD/WN HEENT: PERRL/EOMI, Normal ENT Inspection, Pharynx Normal Neck: Full Range of Motion, Non Tender, Supple Respiratory: Chest Non Tender, Lungs Clear, Normal Breath Sounds, No Accessory Muscle Use, No Respiratory Distress Cardiovascular: Regular Rate, Rhythm, No Edema, No Murmur, Normal Peripheral Pulses Gastrointestinal: Normal Bowel Sounds, Non Tender, Soft Neurologic/Psychiatric: Alert, Oriented x3, No Motor/Sensory Deficits, Normal Mood/Affect, integrated logistics programs director II-XII Norm as Tested, No Abnormal Cerebellar Tests, No Abnormal Gait, No Aphasia, No Facial Droop, No Motor Weakness, No Sensory Deficit Skin: Normal Color, Warm/Dry Progress/Results/Core Measures Results/Orders My Orders Orders - SATINDERFAY Ekg Tracing (11/28/17 20:51) Vital Signs/I&O Vital Sign - Last 12Hours 11/28/17 20:04 Temp 96.3 Pulse 75 Resp 16 B/P (MAP) 195/100 (131) Pulse Ox 98 O2 Delivery Room Air Blood Pressure Mean: 131 Progress Note : Time: 20:49 Progress Note Asymptomatic as tolerated hypertension that with 15 minutes of rest is Corey come down to 170/96. She will probably need long-term control of her blood pressure and we had a long discussion about this but she agrees that this should be a discussion between her and her primary care doctor as well as her electrical systems designer. We encouraged her to log her blood pressure 3-5 times a week first thing in the morning and present this to her primary care physician the next couple weeks. We also discussed the symptoms of stroke and if she experiences these then she has been encouraged to return to the nearest ER immediately. She says she had blood work done yesterday that was discussed with her by her electrical systems designer and other than the creatinine being 1.1 which was described as creeping up everything else was normal. We have offered to do blood work today but given she does having blood work done yesterday and nothing has changed she has declined doing any blood work. ECG Initial ECG Impression Date: Nov 28, 2017 Departure Impression Impression: Primary Impression: Asymptomatic hypertensive urgency Disposition: HOME, SELF-CARE Condition: Stable Departure-Patient Inst. Decision time for Depature: 21:11 Referrals: PRATEEK HURLEY DO (PCP/Family) Primary Care Physician Patient Instructions: High Blood Pressure (DC) Add. Discharge Instructions: Log your blood pressure 3-5 times a week first thing in the morning after you get up. If your blood pressure goes above 190/110 or you start to feel symptoms such as weakness, numbness, facial droop, slurring of speech you should return to the nearest ER immediately. Plan to follow up with your primary care physician in the next 2-4 weeks to manage her blood pressure. Take your blood pressure long with you to this appointment. You can also call your electrical systems designer discussed these results of your blood pressure log. All discharge instructions reviewed with patient and/or family. Voiced understanding. Copy Copies To 1: PRATEEK HURLEY TITUS J Nov 28, 2017 20:49
[2017-11-28 21:15] VITALS: BP 172/96
== END 2017-11-28 21:15 | disposition home or self-care (01) ==
LOC: EDUNIT# 19:50 → ER 19:51
DX: I16.0 Hypertensive urgency (principal); J44.9 Chronic obstructive pulmonary disease, unspecified; E78.00 Pure hypercholesterolemia, unspecified; E03.9 Hypothyroidism, unspecified; K21.9 Gastro-esophageal reflux disease without esophagitis; Z87.19 Personal history of other diseases of the digestive system; Z96.0 Presence of urogenital implants; Z87.891 Personal history of nicotine dependence; Z90.89 Acquired absence of other organs
CPT/HCPCS: 93005

== ENCOUNTER → 2018-12-12 | Outpatient (CLI) | payer MEDICARE ==
[~2018-12-12] MED LIST changes: +AZAT50TA; +MOME17SP9; +PANT40TA3
--- NOTE | 2018-12-12 15:41 | Diagnostic Imaging Report ---
INDICATION: Routine screening. COMPARISON is made with prior mammograms from 10/23/2017 and 10/04/2016. TECHNIQUE: 2-D and 3-D bilateral screening mammography was performed with CAD. FINDINGS: Both breasts remain heterogeneously dense, limiting the sensitivity of mammography. Overall parenchymal pattern appears to be stable. Nodular density in the outer left breast is stable. No new mass or malignant appearing microcalcifications are seen. Axillae are unremarkable. IMPRESSION: BI-RADS category 2 No mammographic features suspicious for malignancy are identified. Dictated by: Dictated on workstation # [id number]
== END ==
LOC: RAD 09:22
PROVIDERS: ATTEND Family Medicine
DX: Z12.31 Encounter for screening mammogram for malignant neoplasm of breast (principal)
CPT/HCPCS: 77067

== ENCOUNTER → 2021-02-13 | Outpatient (CLI) | payer MEDICARE ==
[~2021-02-13] MED LIST changes: -MONT10TA24 PO; +MONT10TA32 PO; -PANT40TA3; +PANT40TA52
--- NOTE | 2021-02-13 11:29 | Diagnostic Imaging Report ---
INDICATION: Routine screening. Comparison is made with prior mammogram 12/12/2018 and 10/23/2017. 2-D and 3-D bilateral screening mammography was performed with CAD. Both breasts are heterogeneously dense, limiting the sensitivity of mammography. Ovoid nodular density in the outer left breast is stable. No spiculated mass or malignant appearing microcalcifications are seen. Axillae are unremarkable. IMPRESSION: BI-RADS Category 2 No mammographic features suspicious for malignancy are identified ACR BI-RADS Category 2: Benign findings. Result letter will be mailed to the patient. Note: At least 10% of breast cancer is not imaged by mammography. Dictated by: Dictated on workstation # [id number]
== END ==
LOC: RAD 08:45
PROVIDERS: ATTEND Family Medicine
DX: Z12.31 Encounter for screening mammogram for malignant neoplasm of breast (principal)
CPT/HCPCS: 77063; 77067

== ENCOUNTER → 2021-07-18 | Outpatient (CLI) | payer MEDICARE ==
[~2021-07-18] MED LIST changes: -SULF1TAB35 PO; +SULF1TAB38 PO
--- NOTE | 2021-07-18 08:58 | Diagnostic Imaging Report ---
INDICATION: Postmenopausal state COMPARISON: 07/25/2009 FINDINGS: AP Spine L1-L4: [BMD (g/cm2): 1.038] [T-Score: -1.3] [Z-Score: -0.5] [BMD Previous: 1.108] [BMD % Change: -6.3] LT Hip Neck: [BMD (g/cm2): 0.852] [T-Score: -1.3] [Z-Score: -0.2] LT Hip Total: [BMD (g/cm2):0.993] [T-Score:-0.1] [Z-Score: 0.8] [BMD Previous: 0.963] [BMD % Change: 3.1] RT Hip Neck: [BMD (g/cm2):0.882] [T-Score:-1.1] [Z-Score:0.0] RT Hip Total: [BMD (g/cm2):1.007] [T-score:0.0] [Z-Score:0.9] [BMD Previous:0.980] [BMD % Change:2.8] *Indicates significant change from prior examination based on 95% confidence level. World Health Organization criteria for BMD interpretation classify patients as Normal (T-score at or above -1.0), Osteopenic (T-score between -1.0 and -2.5) or Osteoporotic (T-score at or below -2.5). LIMITATIONS AND MODIFICATION: None. FRACTURE RISK (FRAX SCORE): The ten year probability of (%): Major Osteoporotic Fracture: [9.5] Hip Fracture: [1.6] IMPRESSION: 1. Osteopenia (Low bone mass). 2. No significant change in bone mineral density since prior examination. 3. See below National Osteoporosis Foundation guidelines on when to potentially initiate pharmacologic therapy. Based on the National Osteoporosis Foundation Guidelines, pharmacologic treatment should be initiated in any of the following, unless clinical conditions suggest otherwise: * Any patient with prior fragility fracture of the hip or vertebrae. A spine fracture indicates 5X risk for subsequent spine fracture and 2X risk for subsequent hip fracture. * Osteoporosis (T-score <-2.5). * Postmenopausal women and men age 50 and older with low bone mass/osteopenia (T-score between -1.0 and -2.5) by DXA and 10-year major osteoporotic fracture greater than 20% or a 10-year probability of hip fracture greater than 3%. These fracture risks are supplied above in the FRAX score, if applicable. * Clinician judgement and/or patient preferences may indicate treatment for people with 10-year fracture probabilities above or below these levels. Dictated by: Dictated on workstation # [id number]
== END ==
LOC: RAD 08:30
PROVIDERS: ATTEND Family Medicine
DX: M85.80 Other specified disorders of bone density and structure, unspecified site (principal); Z78.0 Asymptomatic menopausal state
CPT/HCPCS: 77080

== ENCOUNTER → 2021-08-29 | Outpatient (CLI) | payer MEDICARE ==
[~2021-08-29] MED LIST changes: +MOME17SP11; -MOME17SP9; +MONT-40 PO; -MONT10TA32 PO
--- NOTE | 2021-08-29 11:36 | Diagnostic Imaging Report ---
INDICATION: Fall with pain to sacrum and coccyx. EXAMINATION: Sacrum and coccyx, 3 views. FINDINGS: The SI joints are symmetrical with mild sclerotic change. There is subluxation of the next to last coccygeal segment by approximately 1 cm. The sacral foramina appear intact. IMPRESSION: There is subluxation of the distal coccygeal segment. Dictated by: Dictated on workstation # [id number]
== END ==
LOC: RAD 11:07
PROVIDERS: ATTEND Family Medicine
DX: M43.5X8 Other recurrent vertebral dislocation, sacral and sacrococcygeal region (principal); W19.XXXA Unspecified fall, initial encounter
CPT/HCPCS: 72220

== ENCOUNTER → 2021-10-23 | Outpatient (RCR) | payer MEDICARE | END | disposition home or self-care (01) | PROVIDERS: ATTEND Family Medicine | DX: M53.3 Sacrococcygeal disorders, not elsewhere classified (principal); I10 Essential (primary) hypertension ==

== ENCOUNTER 2021-11-15 10:26 | Outpatient (RCR) | payer MEDICARE | END 2021-11-20 | disposition home or self-care (01) | PROVIDERS: ATTEND Family Medicine | DX: M53.3 Sacrococcygeal disorders, not elsewhere classified (principal); I10 Essential (primary) hypertension ==

== ENCOUNTER 2021-12-20 10:21 | Outpatient (RCR) | payer MEDICARE | END 2021-12-21 | disposition home or self-care (01) | PROVIDERS: ATTEND Family Medicine | DX: M53.3 Sacrococcygeal disorders, not elsewhere classified (principal); I10 Essential (primary) hypertension ==

== ENCOUNTER 2022-01-11 08:55 | Outpatient (RCR) | payer MEDICARE | END 2022-01-20 | disposition home or self-care (01) | PROVIDERS: ATTEND Family Medicine | DX: M53.3 Sacrococcygeal disorders, not elsewhere classified (principal); I10 Essential (primary) hypertension ==

== ENCOUNTER → 2022-07-16 | Outpatient (CLI) | payer MEDICARE ==
--- NOTE | 2022-07-16 12:19 | Diagnostic Imaging Report ---
INDICATION: Routine screening. Comparison is made with prior mammogram 02/13/2021 and 12/12/2018. 2-D and 3-D bilateral screening mammography was performed with CAD. CAD is utilized. The current study was also evaluated with a Computer Aided Detection (CAD) system. Both breasts are heterogeneously dense, limiting the sensitivity of mammography. Ovoid density in the outer left breast is stable. There is some nodularity in the superior right breast on the MLO view of posterior depth appearing more prominent than prior exams. Additional views are recommended for further evaluation. No definite correlative is identified on the CC view but this does appear to be laterally located on the tomographic images. No malignant-appearing microcalcifications are seen. Axillae are unremarkable. IMPRESSION: BI-RADS 0 Right breast density. Additional views recommended for further evaluation. ACR BI-RADS Category 0: Incomplete. (Needs additional imaging evaluation). Result letter will be mailed to the patient. Note: At least 10% of breast cancer is not imaged by mammography. Dictated by: Dictated on workstation # [id number]
== END ==
LOC: RAD 10:55
PROVIDERS: ATTEND Family Medicine
DX: Z12.31 Encounter for screening mammogram for malignant neoplasm of breast (principal)
CPT/HCPCS: 77063; 77067

== ENCOUNTER → 2022-07-18 | Outpatient (CLI) | payer MEDICARE ==
--- NOTE | 2022-07-18 11:30 | Diagnostic Imaging Report ---
INDICATION: Right breast density. Patient presents for additional views. COMPARISON: Correlation is made with the prior mammogram from 07/16/2022. TECHNIQUE: Unilateral right 2D and 3D diagnostic mammography was performed. This included exaggerated CC, spot compression CC, and spot compression ML and conventional 90 degree lateral views. FINDINGS: Additional views show a persistent area of nodularity in the upper outer right breast approximately 9 cm from the nipple. Further evaluation of this area with ultrasound is recommended. No suspicious microcalcifications are seen. IMPRESSION: Persistent nodularity in the upper outer right breast. Further evaluation with ultrasound is recommended and will be performed today. ACR BI-RADS Category 0: Incomplete. (Needs additional imaging evaluation). Result letter will be mailed to the patient. Note: At least 10% of breast cancer is not imaged by mammography. Dictated by: Dictated on workstation # [id number]
--- NOTE | 2022-07-18 11:35 | Diagnostic Imaging Report ---
INDICATION: Right breast density. COMPARISON: Correlation is made with the diagnostic mammogram from earlier this same day as well as a screening mammogram from 07/16/2022. TECHNIQUE: Sonographic interrogation of the upper outer right breast was performed. FINDINGS: There are multiple cysts in the upper outer right breast. The largest cyst measures approximately 4 mm x 5 mm and may account for the mammographic density. No solid mass is detected. IMPRESSION: Simple cyst in the upper outer right breast, likely accounting for the mammographic density. The patient may return to routine annual screening mammography. ACR BI-RADS Category 2: Benign findings. Dictated by: Dictated on workstation # [id number]
== END ==
LOC: RAD 09:30
PROVIDERS: ATTEND Family Medicine
DX: N60.01 Solitary cyst of right breast (principal)
CPT/HCPCS: 76642; 77065; G0279

== ENCOUNTER → 2023-08-30 | Outpatient (CLI) | payer MEDICARE ==
[~2023-08-30] MED LIST changes: +POTA-330 PO; -POTA-51 PO
--- NOTE | 2023-08-30 11:18 | Diagnostic Imaging Report ---
INDICATION: Routine screening. COMPARISON: 07/16/2022 and 02/13/2021. TECHNIQUE: 2D and 3D bilateral screening mammography was performed with CAD. FINDINGS: Scattered fibroglandular densities are identified bilaterally. Areas of nodularity in the upper outer right breast appear stable. Nodularity in the outer left breast appears stable. No new mass or malignant appearing microcalcifications are seen. The axillae are unremarkable. IMPRESSION: No mammographic features suspicious for malignancy are identified. ACR BI-RADS Category 2: Benign findings. Result letter will be mailed to the patient. Note: At least 10% of breast cancer is not imaged by mammography. Dictated by: Dictated on workstation # [id number]
== END ==
LOC: RAD 08:32
PROVIDERS: ATTEND Nurse Practitioner Family
DX: Z12.31 Encounter for screening mammogram for malignant neoplasm of breast (principal)
CPT/HCPCS: 77063; 77067